=== PATIENT | male | born 1980 | race Caucasian/White ===

== ENCOUNTER 2023-06-07 06:16 | Inpatient (IN) | payer OTHER ==
[2023-06-07] MEDS: SODIUM CHLORIDE 0.9% 1,000 ML IV STA (06:45)
[2023-06-07 06:54] LABS: Basophils % (A) 0 %; Eosinophils # (A) 0.2 k/uL (0-0.7); Eosinophils % (A) 1 %; HCT 40.5 % (39.0-53.0); HGB 13.8 gm/dL (13.0-17.5); Lymphocytes % (A) 6 %; MCH 29.2 pg (25.0-35.0); MCHC 34.1 g/dL (31.0-37.0); MCV 85.7 fL (80.0-100.0); Mean Platelet Volume 8.1; Monocytes # (A) 0.7 k/uL (0-1.0); Monocytes % (A) 4 %; Neutrophils # (A) 15.4 k/uL (1.3-7.7); Neutrophils % (A) 89 %; Platelet Count 265 k/uL (150-450); RBC 4.73 m/uL (4.30-5.90); RDW 12.5 % (11.5-15.5); WBC 17.4 k/uL (3.8-10.6)
[2023-06-07 07:05] LABS: ALT 28 U/L (4-49); AST 24 U/L (17-59); African American GFR (CKD) >90 (>60 ml/min/1.73 sqM); Alkaline Phosphatase 94 U/L (38-126); Anion Gap 8 mmol/L; Blood Urea Nitrogen 12 mg/dL (9-20); Calcium 8.8 mg/dL (8.4-10.2); Carbon Dioxide 23 mmol/L (22-30); Chloride 102 mmol/L (98-107); Glucose 129 mg/dL (74-99); Lipase 46 U/L (23-300); Non-African American GFR(CKD) >90 (>60 ml/min/1.73 sqM); Potassium 4.2 mmol/L (3.5-5.1); Sodium 133 mmol/L (137-145); Total Bilirubin 0.8 mg/dL (0.2-1.3); Total Protein 7.4 g/dL (6.3-8.2)
[2023-06-07 07:08] LABS: Appearance,Urine Clear (Clear); Bilirubin,Urine Negative (Negative); Blood,Urine Negative (Negative); Color,Urine Yellow; Glucose,Urine (UA) Negative (Negative); Ketones,Urine Negative (Negative); Leukocyte Esterase,Urine Negative (Negative); Nitrite,Urine Negative (Negative); PH, Urine 5.5 (5.0-8.0); Protein,Urine Negative (Negative); Specific Gravity,Urine 1.021 (1.001-1.035); Urobilinogen,Urine <2.0 mg/dL (<2.0)
--- NOTE | 2023-06-07 07:22 | ED ---
Abdominal Pain HPI - General Chief Complaint: Abdominal Pain Stated Complaint: Abdominal Pain Time Seen by Provider: 06/07/23 06:20 Source: patient, RN notes reviewed Mode of arrival: ambulatory Limitations: no limitations - History of Present Illness Initial Comments: 43-year-old male presents emergency department chief complaint of abdominal pain, constipation no issues. Patient states he has had 3 bouts of this event on and off he states usually he has extreme diarrhea states that he is having difficulty with bowel wounds and states he is having difficulty with urinating. Patient states he feels large more pressure seems to wax and wane in his lower abdomen. Patient denies fevers or chills she denies any prior abdominal surgeries denies history of kidney stone or diverticulitis. - Related Data Allergies Allergy/AdvReac Type Severity Reaction Status Date / Time No Known Allergies Allergy Verified 06/07/23 06:20 Review of Systems ROS Statement: Those systems with pertinent positive or pertinent negative responses have been documented in the HPI. ROS Other: All systems not noted in ROS Statement are negative. Past Medical History Past Medical History: Hypertension History of Any Multi-Drug Resistant Organisms: None Reported Past Surgical History: No Surgical Hx Reported Past Psychological History: No Psychological Hx Reported Smoking Status: Never smoker Past Alcohol Use History: Occasional Past Drug Use History: None Reported General Exam Limitations: no limitations General appearance: alert, in no apparent distress Head exam: Present: atraumatic, normocephalic, normal inspection Neck exam: Present: normal inspection. Absent: tenderness, meningismus, lymphadenopathy Respiratory exam: Present: normal lung sounds bilaterally. Absent: respiratory distress, wheezes, rales, rhonchi, stridor Cardiovascular Exam: Present: regular rate, normal rhythm, normal heart sounds. Absent: systolic murmur, diastolic murmur, rubs, gallop, clicks GI/Abdominal exam: Present: soft, normal bowel sounds. Absent: distended, tenderness, guarding, rebound, rigid Back exam: Absent: CVA tenderness (R), CVA tenderness (L) Neurological exam: Present: alert, oriented X3, CN II-XII intact Course Vital Signs 06/07/23 06/07/23 06:18 07:46 Temperature 99.2 F Pulse Rate 95 86 Respiratory 20 22 Rate Blood Pressure 171/100 158/75 O2 Sat by Pulse 96 97 Oximetry Medical Decision Making - Medical Decision Making Was pt. sent in by a medical professional or institution (MANUEL Gregorio, ZIPPER SEWING MACHINE OPERATOR, urgent care, hospital, or usp...) When possible be specific @ -No Did you speak to anyone other than the patient for history (EMS, parent, family, police, friend...)? What history was obtained from this source @ -No Did you review nursing and triage notes (agree or disagree)? Why? @ -I reviewed and agree with nursing and triage notes Were old charts reviewed (outside hosp., previous admission, EMS record, old EKG, old radiological studies, urgent care reports/EKG's, usp records)? Report findings @ -No old charts were reviewed Differential Diagnosis (chest pain, altered mental status, abdominal pain women, abdominal pain men, vaginal bleeding, weakness, fever, dyspnea, syncope, headache, dizziness, GI bleed, back pain, seizure, CVA, palpatations, mental health, musculoskeletal)? @ -[Differential Abdominal Pain Men: Appendicitis, cholecystitis, diverticulosis, ischemic bowel, pancreatitis, hepatitis, UTI, gastroenteritis, AAA, incarcerated hernia, bowel obstruction, constipation, inflammatory bowel, hepatitis, peptic ulcer disease, splenic infarction, perforated viscus, testicular torsion, this is not meant to be an all-inclusive list EKG interpreted by me (3pts min.). @ -None X-rays interpreted by me (1pt min.). @ -None done CT interpreted by me (1pt min.). @ -CT abdomen pelvis showing evidence of diverticulitis with 5 cm fluid collection in small amount of free air U/S interpreted by me (1pt. min.). @ -None done What testing was considered but not performed or refused? (CT, X-rays, U/S, labs)? Why? @ -None What meds were considered but not given or refused? Why? @ -None Did you discuss the management of the patient with other professionals (p rofessionals i.e. MANUEL Gregorio, ZIPPER SEWING MACHINE OPERATOR, lab, RT, psych nurse, social media content specialist, press bucker, teacher, bsa officer, nurse case manager)? Give summary @ -Dr. Martin for admission recommend n.p.o., IV antibiotics analgesics Was smoking cessation discussed for >3mins.? @ -No Was critical care preformed (if so, how long)? @ -No Were there social determinants of health that impacted care today? How? (Homelessness, low income, unemployed, alcoholism, drug addiction, transportation, low edu. Level, literacy, decrease access to med. care, intermediate, rehab)? @ -No Was there de-escalation of care discussed even if they declined (Discuss DNR or withdrawal of care, Hospice)? DNR status @ -No What co-morbidities impacted this encounter? (DM, HTN, Smoking, COPD, CAD, Cancer, CVA, ARF, Chemo, Hep., AIDS, mental health diagnosis, sleep apnea, morbid obesity)? @ -None Was patient admitted / discharged? Hospital course, mention meds given and route, prescriptions, significant lab abnormalities, going to OR and other pertinent info. @ -[Admitted patient found to have acute diverticulitis patient does have moderate leukocytosis. Patient has a fluid collection and free air. Patient is n.p.o. patient was started on Zosyn, blood cultures were ordered. Undiagnosed new problem with uncertain prognosis? @ -No Drug Therapy requiring intensive monitoring for toxicity (Heparin, Nitro, Insulin, Cardizem)? @ -No Were any procedures done? @ -No Diagnosis/symptom? @ -Acute diverticulitis with abscess, perforation Acute, or Chronic, or Acute on Chronic? @ -[Acute Uncomplicated (without systemic symptoms) or Complicated (systemic symptoms)? @ -Complicated Side effects of treatment? @ -[No Exacerbation, Progression, or Severe Exacerbation? @ -No Poses a threat to life or bodily function? How? (Chest pain, USA, VT, pneumonia, PE, COPD, DKA, ARF, appy, cholecystitis, CVA, Diverticulitis, Homicidal, Suicidal, threat to staff... and all critical care pts) @ -Yes Diverticulitis, surgical risk - Lab Data Result diagrams: 06/07/23 06:46 06/07/23 06:46 Lab Results 06/07/23 06/07/23 06/07/23 Range/Units 06:46 06:46 06:46 WBC 17.4 H (3.8-10.6) k/uL RBC 4.73 (4.30-5.90) m/uL Hgb 13.8 (13.0-17.5) gm/dL Hct 40.5 (39.0-53.0) % MCV 85.7 (80.0-100.0) fL MCH 29.2 (25.0-35.0) pg MCHC 34.1 (31.0-37.0) g/dL RDW 12.5 (11.5-15.5) % Plt Count 265 (150-450) k/uL MPV 8.1 Neutrophils % 89 % Lymphocytes % 6 % Monocytes % 4 % Eosinophils % 1 % Basophils % 0 % Neutrophils # 15.4 H (1.3-7.7) k/uL Lymphocytes # 1.0 (1.0-4.8) k/uL Monocytes # 0.7 (0-1.0) k/uL Eosinophils # 0.2 (0-0.7) k/uL Basophils # 0.0 (0-0.2) k/uL Sodium 133 L (137-145) mmol/L Potassium 4.2 (3.5-5.1) mmol/L Chloride 102 (98-107) mmol/L Carbon Dioxide 23 (22-30) mmol/L Anion Gap 8 mmol/L BUN 12 (9-20) mg/dL Creatinine 0.90 (0.66-1.25) mg/dL Est GFR (CKD-EPI)AfAm >90 (>60 ml/min/1.73 sqM) Est GFR (CKD-EPI)NonAf >90 (>60 ml/min/1.73 sqM) Glucose 129 H (74-99) mg/dL Plasma Lactic Acid Zacarias 0.9 (0.7-2.0) mmol/L Calcium 8.8 (8.4-10.2) mg/dL Total Bilirubin 0.8 (0.2-1.3) mg/dL AST 24 (17-59) U/L ALT 28 (4-49) U/L Alkaline Phosphatase 94 (38-126) U/L Total Protein 7.4 (6.3-8.2) g/dL Albumin 4.0 (3.5-5.0) g/dL Lipase 46 (23-300) U/L Urine Color Urine Appearance (Clear) Urine pH (5.0-8.0) Ur Specific [place] (1.001-1.035) Urine Protein (Negative) Urine Glucose (UA) (Negative) Urine Ketones (Negative) Urine Blood (Negative) Urine Nitrite (Negative) Urine Bilirubin (Negative) Urine Urobilinogen (<2.0) mg/dL Ur Leukocyte Esterase (Negative) 06/07/23 Range/Units 06:47 WBC (3.8-10.6) k/uL RBC (4.30-5.90) m/uL Hgb (13.0-17.5) gm/dL Hct (39.0-53.0) % MCV (80.0-100.0) fL MCH (25.0-35.0) pg MCHC (31.0-37.0) g/dL RDW (11.5-15.5) % Plt Count (150-450) k/uL MPV Neutrophils % % Lymphocytes % % Monocytes % % Eosinophils % % Basophils % % Neutrophils # (1.3-7.7) k/uL Lymphocytes # (1.0-4.8) k/uL Monocytes # (0-1.0) k/uL Eosinophils # (0-0.7) k/uL Basophils # (0-0.2) k/uL Sodium (137-145) mmol/L Potassium (3.5-5.1) mmol/L Chloride (98-107) mmol/L Carbon Dioxide (22-30) mmol/L Anion Gap mmol/L BUN (9-20) mg/dL Creatinine (0.66-1.25) mg/dL Est GFR (CKD-EPI)AfAm (>60 ml/min/1.73 sqM) Est GFR (CKD-EPI)NonAf (>60 ml/min/1.73 sqM) Glucose (74-99) mg/dL Plasma Lactic Acid Zacarias (0.7-2.0) mmol/L Calcium (8.4-10.2) mg/dL Total Bilirubin (0.2-1.3) mg/dL AST (17-59) U/L ALT (4-49) U/L Alkaline Phosphatase (38-126) U/L Total Protein (6.3-8.2) g/dL Albumin (3.5-5.0) g/dL Lipase (23-300) U/L Urine Color Yellow Urine Appearance Clear (Clear) Urine pH 5.5 (5.0-8.0) Ur Specific [place] 1.021 (1.001-1.035) Urine Protein Negative (Negative) Urine Glucose (UA) Negative (Negative) Urine Ketones Negative (Negative) Urine Blood Negative (Negative) Urine Nitrite Negative (Negative) Urine Bilirubin Negative (Negative) Urine Urobilinogen <2.0 (<2.0) mg/dL Ur Leukocyte Esterase Negative (Negative) Disposition Clinical Impression: Diverticulitis of colon with perforation Disposition: ADMITTED IP TO THIS HOSP Condition: Fair Referrals: Reed Lambert DO [Primary Care Provider] - 1-2 days Time of Disposition: 08:08
--- NOTE | 2023-06-07 08:04 | CT ---
EXAMINATION TYPE: CT abdomen pelvis w con DATE OF EXAM: 06/07/2023 COMPARISON: None HISTORY: RLQ and LLQ pain x [address] DLP: 3097.2 mGycm Automated exposure control for dose reduction was used. TECHNIQUE: Helical acquisition of images was performed from the lung bases through the pelvis. CONTRAST: Performed without Oral Contrast and with IV Contrast, patient injected with 100 ml mL of Isovue 300. FINDINGS: There is a 6.5 mm pulmonary nodule in the right lung base otherwise the lung bases are clear. The gallbladder is normal without distention, wall thickening, pericholecystic fluid or gallstone. Th ere is no biliary ductal dilatation. There is no focal mass or organomegaly involving liver, pancreas, spleen or adrenal glands. There is no solid renal mass or hydronephrosis. The caliber of the abdominal aorta is normal. There i s no retroperitoneal adenopathy. There is marked abnormal increased density in the pericolic fat in the sigmoid colon consistent with marked acute diverticulitis. Immediately anterior to the rectosigmoid junction there is a fluid colle ction measuring 5 x 5 cm in size. It is well marginated but does not have a thickened wall and is lik ike a early organizing abscess. There are a few dense droplets of free intraperitoneal air beneath the diaphragm. There is no free fluid within the peritoneum. There is no pelvic adenopathy. No focal osseous lesions are seen. IMPRESSION: 1. Acute Diverticulitis of the sigmoid colon with probable adjacent developing abscess as described a theresa. 2. A few tiny droplets of free intraperitoneal air beneath the diaphragm. 3. Incidental note is made of a 6.5 mm pulmonary nodule.. On a nonemergent basis, CT thorax is recomm ended if this is a high risk patient for lung disease.
[2023-06-07] MEDS ORDERED: NALOXONE 0.4 MG/ML 1 ML VIAL IV PRN (08:08)
[2023-06-07] MEDS: KETOROLAC 15 MG/ML 1 ML VIAL IVP STA (08:14)
[2023-06-07] MEDS: ONDANSETRON 4 MG/2 ML VIAL IVP PRN (08:35)
[2023-06-07] MEDS: HYDROmorphone 0.5 MG/0.5 ML SYRINGE IVP PRN ×2 (08:39→14:21)
[2023-06-07] MEDS: SODIUM CHLORIDE 0.9% 1,000 ML IV SCH (08:39)
[2023-06-07] MEDS: PIPERACILLIN-TAZOBACTAM 3.375 GM in SODIUM CHLORIDE 0.9% 100 ML IVPB SCH (08:44)
--- NOTE | 2023-06-07 11:20 | P.GSHP ---
History of Present Illness H&P Date: 06/07/23 Chief Complaint: Perforated diverticulitis This is a 43-year-old male who had complaints of severe abdominal pain. Patient was seen emergency room found to have evidence of diverticulitis with microperforation. Patient dates has had pain since last Thursday. Past Medical History Past Medical History: Hypertension History of Any Multi-Drug Resistant Organisms: None Reported Past Surgical History: No Surgical Hx Reported Past Psychological History: No Psychological Hx Reported Smoking Status: Never smoker Past Alcohol Use History: Occasional Past Drug Use History: None Reported Medications and Allergies Allergies Allergy/AdvReac Type Severity Reaction Status Date / Time No Known Allergies Allergy Verified 06/07/23 06:20 Surgical - Exam Vital Signs Temp Pulse Resp BP Pulse Ox 99.2 F 95 20 171/100 96 06/07/23 06:18 06/07/23 06:18 06/07/23 06:18 06/07/23 06:18 06/07/23 06:18 - General well developed, well nourished, no distress - Eyes PERRL - ENT normal pinna - Neck no masses - Respiratory normal expansion - Cardiovascular Rhythm: regular - Abdomen Tenderness in right and left lower quadrants. Abdomen: soft Results - Labs 06/07/23 06:46 06/07/23 06:46 Abnormal Lab Results - Last 24 Hours (Table) 06/07/23 06/07/23 Range/Units 06:46 06:46 WBC 17.4 H (3.8-10.6) k/uL Neutrophils # 15.4 H (1.3-7.7) k/uL Sodium 133 L (137-145) mmol/L Glucose 129 H (74-99) mg/dL Diabetes panel 06/07/23 Range/Units 06:46 Sodium 133 L (137-145) mmol/L Potassium 4.2 (3.5-5.1) mmol/L Chloride 102 (98-107) mmol/L Carbon Dioxide 23 (22-30) mmol/L BUN 12 (9-20) mg/dL Creatinine 0.90 (0.66-1.25) mg/dL Glucose 129 H (74-99) mg/dL Calcium 8.8 (8.4-10.2) mg/dL AST 24 (17-59) U/L ALT 28 (4-49) U/L Alkaline Phosphatase 94 (38-126) U/L Total Protein 7.4 (6.3-8.2) g/dL Albumin 4.0 (3.5-5.0) g/dL Calcium panel 06/07/23 Range/Units 06:46 Calcium 8.8 (8.4-10.2) mg/dL Albumin 4.0 (3.5-5.0) g/dL Pituitary panel 06/07/23 Range/Units 06:46 Sodium 133 L (137-145) mmol/L Potassium 4.2 (3.5-5.1) mmol/L Chloride 102 (98-107) mmol/L Carbon Dioxide 23 (22-30) mmol/L BUN 12 (9-20) mg/dL Creatinine 0.90 (0.66-1.25) mg/dL Glucose 129 H (74-99) mg/dL Calcium 8.8 (8.4-10.2) mg/dL Adrenal panel 06/07/23 Range/Units 06:46 Sodium 133 L (137-145) mmol/L Potassium 4.2 (3.5-5.1) mmol/L Chloride 102 (98-107) mmol/L Carbon Dioxide 23 (22-30) mmol/L BUN 12 (9-20) mg/dL Creatinine 0.90 (0.66-1.25) mg/dL Glucose 129 H (74-99) mg/dL Calcium 8.8 (8.4-10.2) mg/dL Total Bilirubin 0.8 (0.2-1.3) mg/dL AST 24 (17-59) U/L ALT 28 (4-49) U/L Alkaline Phosphatase 94 (38-126) U/L Total Protein 7.4 (6.3-8.2) g/dL Albumin 4.0 (3.5-5.0) g/dL - Imaging CT scan - abdomen: report reviewed (Diverticulitis with potentially developing abscess.) Assessment and Plan Assessment: Diverticulitis. Patient was seen receive IV antibiotics. He will remain NPO.
--- NOTE | 2023-06-07 14:07 | XR ---
EXAMINATION TYPE: XR chest 1V portable DATE OF EXAM: 06/07/2023 2:03 PM CLINICAL INDICATION:Male, 43 years old with history of chf; [facility] COMPARISON: None. TECHNIQUE: XR chest 1V portable Frontal view of the chest. FINDINGS: Lungs/Pleura: There is no evidence of pleural effusion, focal consolidation, or pneumothorax. Pulmonary vascularity: Mild vascular congestion. Heart/mediastinum: Cardiomediastinal silhouette is unremarkable. Musculoskeletal: No acute osseous pathology. IMPRESSION: Minimal pulmonary vascular congestion. No evidence of pleural effusion or other evidence to suggest h eart failure.
[2023-06-07] MEDS: HEPARIN SODIUM,PORCINE 5,000 UNIT/ML 1 ML VIAL SQ SCH (14:22)
[2023-06-07] MEDS: PANTOPRAZOLE 40 MG/10 ML VIAL IVP SCH (14:22)
--- NOTE | 2023-06-07 14:43 | P.CONS ---
History of Present Illness - Reason for Consult Consult date: 06/07/23 Perforated diverticulitis and abscess Requesting physician: Moiz Martin - Chief Complaint Abdominal pain x few days - History of Present Illness Patient is a 43-year-old male with a past medical history significant for hypertension presenting to the ER for evaluation of abdominal pain and constipation patient mention his symptoms started initially beginning of the week has mostly abdominal pain and difficulty going to the bathroom however by Thursday his symptoms improved however the next day that is the day before presentation to the hospital patient did have worsening abdominal pain describing it to be sharp moderate to severe intensity without any radiation did have associated difficulty urination as well as no bowel movement patient did have some nausea and apparently did have some vomiting of the patient was started on some medication here patient on presentation to the hospital did have a low-grade fever of 99.2. No significant tachycardia no hypotension and no hypoxemia was noticed patient did have white count of 17.4 with a left shift c reatinine 0.90 urine has been negative patient did have a CT of abdominal pelvis acute diverticulitis sigmoid colon with possible adjacent developing abscess patient was started on Zosyn infectious was consulted for further management of antibiotic therapy Review of Systems Positive point and negatives has been mentioned in the HPI, complete review of systems was performed and all other systems are negative Past Medical History Past Medical History: Hypertension History of Any Multi-Drug Resistant Organisms: None Reported Past Surgical History: No Surgical Hx Reported Past Psychological History: No Psychological Hx Reported Smoking Status: Never smoker Past Alcohol Use History: Occasional Past Drug Use History: None Reported Medications and Allergies Home Medications Medication Instructions Recorded Confirmed Type lisinopriL 30 mg PO DAILY 06/07/23 06/07/23 History tadalafiL [Cialis] 20 mg PO Q72H PRN 06/07/23 06/07/23 History Allergies Allergy/AdvReac Type Severity Reaction Status Date / Time No Known Allergies Allergy Verified 06/07/23 11:31 Physical Exam Vitals: Vital Signs Temp Pulse Pulse Resp BP BP Pulse Ox 06/07/23 10:05 98.4 F 68 20 162/70 97 06/07/23 08:49 98.7 F 60 20 151/67 97 06/07/23 07:46 86 22 158/75 97 06/07/23 06:18 99.2 F 95 20 171/100 96 Intake and Output 0206/07/23 06/07/23 22:59 06:59 14:59 Other: Weight 145.15 kg GENERAL DESCRIPTION: Middle-aged male lying in bed, no distress. No tachypnea or accessory muscle of respiration use. HEENT: Shows Pallor , no scleral icterus. Oral mucous membrane is dry. No pharyngeal erythema or thrush NECK: Trachea central, no thyromegaly. LUNGS: Unlabored breathing. Clear to auscultation anteriorly. No wheeze or crackle. HEART: S1, S2, regular rate and rhythm. No loud murmur ABDOMEN: Soft, mild tenderness , no guarding or rigidity EXTREMITIES: No edema of feet. SKIN: No rash, no masses palpable. NEUROLOGICAL: The patient is awake, alert, oriented x3, mood and affect normal. Results CBC & Chem 7: 06/07/23 06:46 06/07/23 06:46 Labs: Abnormal Lab Results - Last 24 Hours (Table) 06/07/23 06/07/23 Range/Units 06:46 06:46 WBC 17.4 H (3.8-10.6) k/uL Neutrophils # 15.4 H (1.3-7.7) k/uL Sodium 133 L (137-145) mmol/L Glucose 129 H (74-99) mg/dL Assessment and Plan (1) Intra-abdominal abscess Current Visit: Yes Status: Acute Code(s): K65.1 - PERITONEAL ABSCESS SNOMED Code(s): 84122245 (2) Leukocytosis Current Visit: Yes Status: Acute Code(s): D72.829 - ELEVATED WHITE BLOOD CELL COUNT, UNSPECIFIED SNOMED Code(s): 031831495 (3) Diverticulitis of colon with perforation Current Visit: Yes Status: Acute Code(s): K57.20 - DVTRCLI OF LG INT W PERFORATION AND ABSCESS W/O BLEEDING SNOMED Code(s): 04527853 Plan: 1patient to the hospital with sepsis in this patient who did have a low-grade fever elevated white count mild tachycardia source is likely abdominal in this patient with evidence of acute sigmoid diverticulitis complicated with perf oration and possible involvement of lang diverticular abscess, we will need to cover for the enteric gram-negative both aerobes and anaerobes 2patient to continue with Zosyn 3.375 g every 8 hours admission for adequate body coverage along with bowel rest Multiple question concern answered We will follow on clinical condition and cultures to further adjust medication if needed Thank you for this consultation we will follow the patient along with you Dictation was produced using [employer] dictation software. please excuse any grammatical, word or spelling errors. Time with Patient: Greater than 30
--- NOTE | 2023-06-07 23:19 | CONS ---
CONSULTATION REASON FOR CONSULTATION: Advice regarding hypertension, other multiple issues requested by surgery. HISTORY OF PRESENT ILLNESS: A 43-year-old gentleman with a past medical history of hypertension, was admitted with abdominal pain, diverticulitis, and microperforation was suspected. Few tiny droplets of intraperitoneal air were also noted beneath the diaphragm and incidentally noted 6.5 cm pulmonary nodule. The patient admitted for further management. There is no history of fever or rigors. Surgery is recommended, antibiotics and continue to monitor. PAST MEDICAL HISTORY: Reviewed include hypertension. Rest of the history and rest of the chart is also reviewed. HOME MEDICATIONS: Lisinopril and Cialis. ALLERGIES: None. FAMILY HISTORY: No history of heart disease or strokes in the family. SOCIAL HISTORY: No history of smoking or alcohol. REVIEW OF SYSTEMS: A 14-point review of systems negative except as mentioned earlier. PHYSICAL EXAMINATION: VITAL SIGNS: Pulse is 60, blood pressure 151/60, and respirations 20. CHEST: No rhonchi. No crackles. ABDOMEN: Obese. Mild diffuse discomfort. No guarding. No mass palpable. Bowel sounds diminished. LEGS: No edema. No swelling. LABORATORY DATA: WBC 17.4. ASSESSMENT: 1. Acute sigmoid diverticulitis as well as probably microperforation. 2. Tiny droplets of free intraperitoneal air in the CAT scan. 3. Incidental note of 6.5 mm pulmonary nodule. 4. Hypertension. 5. Increased WBC. 6. Hyponatremia. 7. Obesity with body mass index 40. RECOMMENDATIONS AND DISCUSSION: This 43-year-old gentleman who presented with multiple complex medical issues. We will monitor the patient closely. Continue the current management and pain management. I would recommend broad-spectrum IV antibiotics. Follow the cultures. Otherwise, Infectious Disease evaluation. I would recommend monitor blood pressure closely. Continue to monitor. Further recommendations to follow. MMODL / IJN: [id number] /
[2023-06-08] MEDS: ACETAMINOPHEN TAB 325 MG TAB PO PRN (03:23)
[2023-06-08] MEDS: hydrALAZINE HCL 20 MG/ML 1 ML VIAL IVP PRN (03:44)
[2023-06-08 08:33] LABS: Basophils # (A) 0.04 X 10*3/uL (0.00-0.10); Basophils % (A) 0.2 %; Eosinophils # (A) 0.04 X 10*3/uL (0.04-0.35); Eosinophils % (A) 0.2 %; HCT 37.2 % (39.6-50.0); HGB 12.1 g/dL (13.0-17.0); Lymphocytes # (A) 1.21 X 10*3/uL (0.90-5.00); Lymphocytes % (A) 6.4 %; MCH 28.3 pg (27.0-32.0); MCHC 32.5 g/dL (32.0-37.0); MCV 87.1 FL (80.0-97.0); Mean Platelet Volume 10.5 FL (9.5-12.2); Monocytes % (A) 7.4 %; NRBC Per 100 WBC 0 X 10*3/uL (0.00-0.01); Neutrophils # (A) 16.12 X 10*3/uL (1.80-7.70); Neutrophils % (A) 85.2 %; Platelet Count 240 X 10*3/uL (140-440); RBC 4.27 X 10*6/uL (4.40-5.60); RDW 12.7 % (11.5-14.5); WBC 18.92 X 10*3/uL (4.50-10.00)
[2023-06-08 08:45] LABS: Blood Urea Nitrogen 9.4 mg/dL (9.0-27.0); Calcium 8.6 mg/dL (8.7-10.3); Carbon Dioxide 23.3 mmol/L (21.6-31.8); Chloride 101 mmol/L (96-109); Glucose 106 mg/dL (70-110); Potassium 3.6 mmol/L (3.5-5.5); Sodium 137 mmol/L (135-145)
--- NOTE | 2023-06-08 11:25 | P.PN ---
Subjective Progress Note Date: 06/08/23 Principal diagnosis: Reason for follow-up is complicated diverticulitis with peridiverticular abscess Patient is a 43-year-old male with a past medical history significant for hypertension presenting to the ER for evaluation of abdominal pain and constipation, patient been diagnosed with the complicated diverticulitis with perforation and mild peridiverticular abscess. On today's evaluation that is 06/08/2023, the patient did have a low-grade fever 100.5 around 3 this morning however the patient is afebrile since then, the patient is on room air and breathing comfortably, the Pt denies having any chest pain or cough, the patient abdominal pain has decreased in intensity denies any nausea no vomiting did not have any bowel movement. Patient white count slightly up to 18.92, creatinine is 1.0 Objective - Vital Signs Vital signs: Vital Signs Temp 98.8 F 06/08/23 06:55 Pulse 91 06/08/23 06:55 Resp 18 06/08/23 06:55 BP 138/79 06/08/23 06:55 Pulse Ox 97 06/08/23 06:55 FiO2 Intake & Output 06/07/23 06/08/23 06/08/23 18:59 06:59 18:59 Output Total 1172 Balance -1172 Weight 145.15 kg Output: Urine 700 Post Void Residual 472 Other: Voiding Method Toilet Toilet # Voids 6 - Exam GENERAL DESCRIPTION: Middle-age male lying in bed in no distress RESPIRATORY SYSTEM: Unlabored breathing , decreased breath sounds at bases HEART: S1 S2 regular rate and rhythm , ABDOMEN: Soft , mild distention but no significant tenderness EXTREMITIES: No edema feet - Labs CBC & Chem 7: 06/08/23 05:21 06/08/23 05:21 Labs: Abnormal Lab Results - Last 24 Hours (Table) 06/08/23 06/08/23 Range/Units 05:21 05:21 WBC 18.92 H (4.50-10.00) X 10*3/uL RBC 4.27 L (4.40-5.60) X 10*6/uL Hgb 12.1 L (13.0-17.0) g/dL Hct 37.2 L (39.6-50.0) % Immature Gran # 0.11 H (0.00-0.04) X 10*3/uL Neutrophils # 16.12 H (1.80-7.70) X 10*3/uL Monocytes # 1.40 H (0.20-1.00) X 10*3/uL Anion Gap 12.70 H (4.00-12.00) mmol/L BUN/Creatinine Ratio 9.40 L (12.00-20.00) Ratio Calcium 8.6 L (8.7-10.3) mg/dL Assessment and Plan (1) Intra-abdominal abscess Current Visit: Yes Status: Acute Code(s): K65.1 - PERITONEAL ABSCESS SNOMED Code(s): 61240563 (2) Leukocytosis Current Visit: Yes Status: Acute Code(s): D72.829 - ELEVATED WHITE BLOOD CELL COUNT, UNSPECIFIED SNOMED Code(s): 129894281 (3) Diverticulitis of colon with perforation Current Visit: Yes Status: Acute Code(s): K57.20 - DVTRCLI OF LG INT W PERFORATION AND ABSCESS W/O BLEEDING SNOMED Code(s): 50639598 Plan: 1patient to the hospital with sepsis in this patient who did have a low-grade fever elevated white count mild tachycardia source is likely abdominal in this patient with evidence of acute sigmoid diverticulitis complicated with perforation and possible involvement of lang diverticular abscess, we will need to cover for the enteric gram-negative both aerobes and anaerobes 2patient did have a low-grade fever white count slightly up that is slightly concerning however the patient mention feeling better hence will continue with Zosyn 3.375 g every 8 hours along with bowel rest Multiple question concern answered Dictation was produced using [email or web address] dictation software. please excuse any grammatical, word or spelling errors. Time with Patient: Less than 30
--- NOTE | 2023-06-08 15:12 | P.PN ---
Subjective Progress Note Date: 06/08/23 CHIEF COMPLAINT: Perforated diverticulitis HISTORY OF PRESENT ILLNESS: Patient reports abdominal pain improving. He reports he can go longer duration between doses of pain medication. Denies any nausea or vomiting. He has been incontinent of stool. Did have a low-grade temp of 100.5 at 3 AM this morning. WBC is up from 17-18.92 PHYSICAL EXAM: VITAL SIGNS: Reviewed. GENERAL: Well-developed in no acute distress. HEENT: No sclera icterus. Extraocular movements grossly intact. Moist buccal mucosa. Head is atraumatic, normocephalic. ABDOMEN: Soft. Nondistended. Nontender. Patient received pain medicine before exam NEUROLOGIC: Alert and oriented. Cranial nerves II through XII grossly intact. ASSESSMENT: 1. Diverticulitis with microperforation and potentially developing abscess PLAN: -Keep patient n.p.o. -Continue IV fluids -Continue IV pain medication -Encourage patient to increase activity level -Repeat CBC in a.m. Physician Custodian Supervisor note has been reviewed by physician. Signing provider agrees with the documented findings, assessment, and plan of care. Objective - Vital Signs Vital signs: Vital Signs Temp 98.8 F 06/08/23 06:55 Pulse 91 06/08/23 06:55 Resp 18 06/08/23 06:55 BP 138/79 06/08/23 06:55 Pulse Ox 97 06/08/23 06:55 FiO2 Intake & Output 06/07/23 06/08/23 06/08/23 18:59 06:59 18:59 Output Total 1172 Balance -1172 Weight 145.15 kg Output: Urine 700 Post Void Residual 472 Other: Voiding Method Toilet Toilet # Voids 6 - Labs CBC & Chem 7: 06/08/23 05:21 06/08/23 05:21 Labs: Abnormal Lab Results - Last 24 Hours (Table) 06/08/23 06/08/23 Range/Units 05:21 05:21 WBC 18.92 H (4.50-10.00) X 10*3/uL RBC 4.27 L (4.40-5.60) X 10*6/uL Hgb 12.1 L (13.0-17.0) g/dL Hct 37.2 L (39.6-50.0) % Immature Gran # 0.11 H (0.00-0.04) X 10*3/uL Neutrophils # 16.12 H (1.80-7.70) X 10*3/uL Monocytes # 1.40 H (0.20-1.00) X 10*3/uL Anion Gap 12.70 H (4.00-12.00) mmol/L BUN/Creatinine Ratio 9.40 L (12.00-20.00) Ratio Calcium 8.6 L (8.7-10.3) mg/dL
--- NOTE | 2023-06-08 22:40 | PN ---
PROGRESS NOTE DATE OF SERVICE: 06/08/2023 SUBJECTIVE: This is a 43-year-old gentleman, who was admitted with diverticulitis as well as microperforation. He is on antibiotics. No chest pain. No palpitation. Surgery is following the patient closely. OBJECTIVE: VITAL SIGNS: Pulse is 91, blood pressure 138/77, respirations 18. T-max is 100.5. CHEST: Clear to auscultation. CARDIOVASCULAR: S1, S2 muffled. ABDOMEN: Soft, obese. LABORATORY DATA: Reviewed. WBC 18.92, rest of the labs are noted. ASSESSMENT: 1. Acute sigmoid diverticulitis and as well as microperforation. 2. Continued fever. 3. Tiny droplets of free intraperitoneal air in the CT scan. 4. Incidental note of 6.5 mm pulmonary nodule for outpatient followup. 5. Hypertension. 6. Increased WBC. 7. Hyponatremia. 8. Obesity with body mass index of 40. RECOMMENDATIONS AND DISCUSSION: Recommend to continue current management and continue symptomatic treatment, otherwise we will repeat blood cultures. Repeat labs. Closely follow with Surgery, Infectious Disease, empiric antibiotics. Further recommendations to follow. MMODL / IJN: [id number] /
[2023-06-09 11:26] LABS: Basophils # (A) 0.05 X 10*3/uL (0.00-0.10); Basophils % (A) 0.3 %; Eosinophils # (A) 0.02 X 10*3/uL (0.04-0.35); Eosinophils % (A) 0.1 %; HCT 35.8 % (39.6-50.0); HGB 11.8 g/dL (13.0-17.0); Lymphocytes # (A) 1.62 X 10*3/uL (0.90-5.00); Lymphocytes % (A) 9.9 %; MCH 29.3 pg (27.0-32.0); MCV 88.8 FL (80.0-97.0); Mean Platelet Volume 10.4 FL (9.5-12.2); Monocytes # (A) 1.16 X 10*3/uL (0.20-1.00); Monocytes % (A) 7.1 %; NRBC Per 100 WBC 0 X 10*3/uL (0.00-0.01); Neutrophils # (A) 13.35 X 10*3/uL (1.80-7.70); Neutrophils % (A) 81.8 %; Platelet Count 245 X 10*3/uL (140-440); RBC 4.03 X 10*6/uL (4.40-5.60); RDW 12.8 % (11.5-14.5); WBC 16.33 X 10*3/uL (4.50-10.00)
[2023-06-09 11:37] LABS: ALT 18 U/L (10-49); AST 16 U/L (14-35); Albumin 3.6 g/dL (3.8-4.9); Albumin/Globulin Ratio 1.24 Ratio (1.60-3.17); Alkaline Phosphatase 76 U/L (41-126); BUN/Creat Ratio 12.27 Ratio (12.00-20.00); Blood Urea Nitrogen 13.5 mg/dL (9.0-27.0); Calcium 8.7 mg/dL (8.7-10.3); Carbon Dioxide 26.6 mmol/L (21.6-31.8); Chloride 100 mmol/L (96-109); Globulin 2.9 g/dL (1.6-3.3); Glucose 89 mg/dL (70-110); Potassium 3.6 mmol/L (3.5-5.5); Sodium 138 mmol/L (135-145); Total Bilirubin 0.8 mg/dL (0.3-1.2); Total Protein 6.5 g/dL (6.2-8.2)
--- NOTE | 2023-06-09 12:02 | P.PN ---
Subjective Progress Note Date: 06/09/23 CHIEF COMPLAINT: Perforated diverticulitis HISTORY OF PRESENT ILLNESS: Patient reports that his pain is improving each day. He has being able to go longer time without pain medicine. He describes just a pressure in the lower abdomen. Denies any nausea or vomiting. Reports having bowel movements. Afebrile. WBC is down from 18.92-16.33 PHYSICAL EXAM: VITAL SIGNS: Reviewed. GENERAL: Well-developed in no acute distress. ABDOMEN: Soft. Nondistended. Nontender. NEUROLOGIC: Alert and oriented. Cranial nerves II through XII grossly intact. ASSESSMENT: 1. Diverticulitis with microperforation and potentially developing abscess PLAN: -Advance diet to full liquids -Continue IV fluids -Continue IV pain medication -Encourage patient to increase activity level -Repeat CBC in a.m. Physician Veterinary Nurse note has been reviewed by physician. Signing provider agrees with the documented findings, assessment, and plan of care. Objective - Vital Signs Vital signs: Vital Signs Temp 98.9 F 06/09/23 07:17 Pulse 90 06/09/23 07:17 Resp 16 06/09/23 07:17 BP 119/70 06/09/23 07:17 Pulse Ox 98 06/09/23 07:17 FiO2 Intake & Output 06/08/23 06/09/23 06/09/23 18:59 06:59 18:59 Other: Voiding Method Toilet Toilet # Voids 5 2 - Labs CBC & Chem 7: 06/09/23 05:25 06/09/23 05:25 Labs: Abnormal Lab Results - Last 24 Hours (Table) 06/09/23 06/09/23 Range/Units 05:25 05:25 WBC 16.33 H (4.50-10.00) X 10*3/uL RBC 4.03 L (4.40-5.60) X 10*6/uL Hgb 11.8 L (13.0-17.0) g/dL Hct 35.8 L (39.6-50.0) % Immature Gran # 0.13 H (0.00-0.04) X 10*3/uL Neutrophils # 13.35 H (1.80-7.70) X 10*3/uL Monocytes # 1.16 H (0.20-1.00) X 10*3/uL Eosinophils # 0.02 L (0.04-0.35) X 10*3/uL Albumin 3.6 L (3.8-4.9) g/dL Albumin/Globulin Ratio 1.24 L (1.60-3.17) Ratio Microbiology - Last 24 Hours (Table) 06/07/23 08:25 Blood Culture - Preliminary Blood 06/07/23 08:10 Blood Culture - Preliminary Blood
--- NOTE | 2023-06-09 12:27 | P.PN ---
Subjective Progress Note Date: 06/09/23 Principal diagnosis: Reason for follow-up is complicated diverticulitis with peridiverticular abscess Patient is a 43-year-old male with a past medical history significant for hypertension presenting to the ER for evaluation of abdominal pain and constipation, patient been diagnosed with the complicated diverticulitis with perforation and mild peridiverticular abscess. On today's evaluation that is 06/09/2023, Patient is afebrile , patient is currently on room air and denies having any shortness of breath, the patient denies any chest pain or cough, the patient denies any nausea vomiting abdominal pain has decreased intensity did not require any pain medication and mention of bowel movements. Patient white count is down to 16.33, creatinine is 1.1 blood cultures pending Objective - Vital Signs Vital signs: Vital Signs Temp 98.9 F 06/09/23 07:17 Pulse 90 06/09/23 07:17 Resp 16 06/09/23 07:17 BP 119/70 06/09/23 07:17 Pulse Ox 98 06/09/23 07:17 FiO2 Intake & Output 06/08/23 06/09/23 06/09/23 18:59 06:59 18:59 Other: Voiding Method Toilet Toilet # Voids 5 2 - Exam GENERAL DESCRIPTION: Middle-age male lying in bed in no distress RESPIRATORY SYSTEM: Unlabored breathing , decreased breath sounds at bases HEART: S1 S2 regular rate and rhythm , ABDOMEN: Soft , mild distention but no significant tenderness EXTREMITIES: No edema feet - Labs CBC & Chem 7: 06/09/23 05:25 06/09/23 05:25 Labs: Microbiology - Last 24 Hours (Table) 06/07/23 08:25 Blood Culture - Preliminary Blood 06/07/23 08:10 Blood Culture - Preliminary Blood Assessment and Plan (1) Intra-abdominal abscess Current Visit: Yes Status: Acute Code(s): K65.1 - PERITONEAL ABSCESS SNOMED Code(s): 85532818 (2) Leukocytosis Current Visit: Yes Status: Acute Code(s): D72.829 - ELEVATED WHITE BLOOD CELL COUNT, UNSPECIFIED SNOMED Code(s): 570517713 (3) Diverticulitis of colon with perforation Current Visit: Yes Status: Acute Code(s): K57.20 - DVTRCLI OF LG INT W PERFORATION AND ABSCESS W/O BLEEDING SNOMED Code(s): 33386695 Plan: 1patient to the hospital with sepsis in this patient who did have a low-grade fever elevated white count mild tachycardia source is likely abdominal in this patient with evidence of acute sigmoid diverticulitis complicated with perforation and possible involvement of lang diverticular abscess, we will need to cover for the enteric gram-negative both aerobes and anaerobes 2patient did have resolution of his fever and the white count is trending down we will continue patient on Zosyn along with bowel rest and monitor clinical course closely Question concern answered Dictation was produced using [employer] dictation software. please excuse any grammatical, word or spelling errors. Time with Patient: Less than 30
--- NOTE | 2023-06-09 14:16 | CDI ---
Documentation Clarification Form Date: 06/09/2023 01:51:53 PM From: Chapis Hernandez RN CCDS Phone: [phone] Admit Date: 06/07/2023 08:10:00 AM Patient Name: Moris Payan Visit Number: [id number] Discharge Date: ATTENTION: The Clinical Documentation Specialists (CDI) and [facility] Coding Staff appreciate your assistance in clarifying documentation. Please respond to the clarification below the line at the bottom and electronically sign. The CDI & [facility] Coding staff will review the response and follow-up if needed. Please note: Queries are made part of the Legal Health Record. If you have any questions, please contact the author of this message via ITS. Dr. Moiz Millerania The patient has Diverticulitis with micro perforation and potentially developing abscess. Based on this information and the findings below, is there an additional diagnosis that is clinically appropriate for this patient? History/Risk Factors: 43-year-old male presents to the ED with abdominal pain. Medical History: HTN. 06/07, Medicine consult. Clinical Indicators: WBC, 06/07: 17.4 Neutrophils, 06/07: 15.4 Blood cultures, 06/08: Preliminary No growth after 24 hours Vitals signs, 06/07: B/P 171/100; HR 95; Temp 99.2F Oral; RR 20, SpO2 96% room air ID Consult, 06/07: Patient to the hospital with sepsis in this patient who did have a low grade fever elevated white count mild tachycardia source is likely abdominal in this patient with evidence of acute sigmoid diverticulitis complicated with perforation and possible involvement of lang diverticular abscess. ABD PELVIS CT, 06/07: 1.Acute Diverticulitis of the sigmoid colon with probable adjacent developing abscess as described above. 2.A few tiny droplets of free intraperitoneal air beneath the diaphragm. Treatment: ID Consult: See above Antibiotics: 06/07 Zosyn 3.375gm 100mls@25mls/hr IVPB Q8HR IV Bolus: 06/07 0.9NS 1L IVPB Bolus x 1 Is there an additional diagnosis that is clinically appropriate for this patient? [ X] Sepsis, present on admission [ ] Sepsis ruled out [ ] Other, please specify [ ] Unable to determine SIRS Criteria: 2 or more of the following may indicate SIRS Temperature < 96.8F (36C) or > 101.0F (38.3C) Heart Rate > 90 bpm Respiratory Rate > 20 breaths/min or PaCO2 < 32 mmHg White Blood Cell Count > 12,000 or < 4,000 cells/mm3 or > 10% bands (Template Last Reviewed: April 2022) MTDD
--- NOTE | 2023-06-09 14:58 | PN ---
PROGRESS NOTE DATE OF SERVICE: 06/09/2023 SUBJECTIVE: This is a 43-year-old gentleman who was admitted with acute sigmoid diverticulitis and microperforation. He is being closely monitored. No chest pain. No palpitations. No fever. The patient is on medical treatment. PHYSICAL EXAMINATION: VITAL SIGNS: Pulse is 90, blood pressure n respiratory rate 16. CHEST: Clear to auscultation. CARDIOVASCULAR: S1, S2. ABDOMEN: Soft, minimal discomfort. No guarding or rigidity. LABORATORY DATA: WBC 16.3, improving. ASSESSMENT: 1. Acute sigmoid diverticulitis as well as microperforation, on medical treatment. 2. Continued fever, improving. 3. Tiny droplets of free intraperitoneal air in the CAT scan. 4. Incidental note of 6.5 mm pulmonary nodule in outpatient followup. 5. Hypertension. 6. Increased WBC. 7. Hyponatremia. RECOMMENDATIONS AND DISCUSSION: I recommend to continue current management and continue the antibiotics. Otherwise, closely monitor. Repeat labs will be ordered. Closely follow with Surgery, DVT prophylaxis. Further recommendations to follow. MMODL / IJN: [id number] / THO
[2023-06-10 11:06] LABS: Basophils # (A) 0.05 X 10*3/uL (0.00-0.10); Basophils % (A) 0.4 %; Eosinophils # (A) 0.07 X 10*3/uL (0.04-0.35); Eosinophils % (A) 0.6 %; HCT 38.5 % (39.6-50.0); HGB 12.7 g/dL (13.0-17.0); Lymphocytes % (A) 12.4 %; MCH 28.8 pg (27.0-32.0); MCV 87.3 FL (80.0-97.0); Mean Platelet Volume 10.6 FL (9.5-12.2); Monocytes # (A) 0.95 X 10*3/uL (0.20-1.00); Monocytes % (A) 7.8 %; NRBC Per 100 WBC 0 X 10*3/uL (0.00-0.01); Neutrophils # (A) 9.46 X 10*3/uL (1.80-7.70); Platelet Count 292 X 10*3/uL (140-440); RBC 4.41 X 10*6/uL (4.40-5.60); RDW 12.7 % (11.5-14.5); WBC 12.13 X 10*3/uL (4.50-10.00)
--- NOTE | 2023-06-10 11:22 | P.PN ---
Subjective Progress Note Date: 06/10/23 Principal diagnosis: Reason for follow-up is complicated diverticulitis with peridiverticular abscess Patient is a 43-year-old male with a past medical history significant for hypertension presenting to the ER for evaluation of abdominal pain and constipation, patient been diagnosed with the complicated diverticulitis with perforation and mild peridiverticular abscess. On today's evaluation that is 06/10/2023,the patient denies any fever or any chills, patient is breathing comfortably on room air, the patient denies chest pain shortness of breath and no significant cough, patient abdominal pain has slightly decreased in intensity denies any nausea no vomiting did have bowel movement x 2. The patient white count is 12.13 creatinine is 1.1 blood culture has been negative Objective - Vital Signs Vital signs: Vital Signs Temp 98.3 F 06/10/23 07:29 Pulse 81 06/10/23 07:29 Resp 18 06/10/23 07:29 BP 147/84 06/10/23 07:29 Pulse Ox 96 06/10/23 07:29 FiO2 Intake & Output 06/09/23 06/10/23 06/10/23 18:59 06:59 18:59 Other: Voiding Method Toilet # Voids 5 2 1 # Bowel Movements 1 - Exam GENERAL DESCRIPTION: Middle-age male lying in bed in no distress RESPIRATORY SYSTEM: Unlabored breathing , decreased breath sounds at bases HEART: S1 S2 regular rate and rhythm , ABDOMEN: Soft , mild distention but no significant tenderness EXTREMITIES: No edema feet - Labs CBC & Chem 7: 06/10/23 06:02 06/09/23 05:25 Labs: Abnormal Lab Results - Last 24 Hours (Table) 06/09/23 06/09/23 Range/Units 05:25 05:25 WBC 16.33 H (4.50-10.00) X 10*3/uL RBC 4.03 L (4.40-5.60) X 10*6/uL Hgb 11.8 L (13.0-17.0) g/dL Hct 35.8 L (39.6-50.0) % Immature Gran # 0.13 H (0.00-0.04) X 10*3/uL Neutrophils # 13.35 H (1.80-7.70) X 10*3/uL Monocytes # 1.16 H (0.20-1.00) X 10*3/uL Eosinophils # 0.02 L (0.04-0.35) X 10*3/uL Albumin 3.6 L (3.8-4.9) g/dL Albumin/Globulin Ratio 1.24 L (1.60-3.17) Ratio Microbiology - Last 24 Hours (Table) 06/08/23 12:21 Blood Culture - Preliminary Blood 06/07/23 08:25 Blood Culture - Preliminary Blood 06/07/23 08:10 Blood Culture - Preliminary Blood Assessment and Plan (1) Intra-abdominal abscess Current Visit: Yes Status: Acute Code(s): K65.1 - PERITONEAL ABSCESS SNOMED Code(s): 68587262 (2) Leukocytosis Current Visit: Yes Status: Acute Code(s): D72.829 - ELEVATED WHITE BLOOD CELL COUNT, UNSPECIFIED SNOMED Code(s): 283578162 (3) Diverticulitis of colon with perforation Current Visit: Yes Status: Acute Code(s): K57.20 - DVTRCLI OF LG INT W PE RFORATION AND ABSCESS W/O BLEEDING SNOMED Code(s): 58060403 Plan: 1patient to the hospital with sepsis in this patient who did have a low-grade fever elevated white count mild tachycardia source is likely abdominal in this patient with evidence of acute sigmoid diverticulitis complicated with perforation and possible involvement of lang diverticular abscess, we will need to cover for the enteric gram-negative both aerobes and anaerobes 2patient did have resolution of his fever and the white count is trending down, patient still have extensive infection recommend getting the patient on IV Zosyn over the next 48 to 72 hours and a possible repeat CT that will help determine his discharge antibiotics with IV or oral at the bedside questions were answered Dictation was produced using [employer] dictation software. please excuse any g rammatical, word or spelling errors. Time with Patient: Less than 30
[2023-06-10 12:32] LABS: ALT 24 U/L (10-49); AST 21 U/L (14-35); Albumin 3.8 g/dL (3.8-4.9); Albumin/Globulin Ratio 1.27 Ratio (1.60-3.17); Alkaline Phosphatase 80 U/L (41-126); Blood Urea Nitrogen 10.7 mg/dL (9.0-27.0); Carbon Dioxide 25.6 mmol/L (21.6-31.8); Chloride 100 mmol/L (96-109); Glucose 96 mg/dL (70-110); Potassium 3.7 mmol/L (3.5-5.5); Sodium 140 mmol/L (135-145); Total Bilirubin 0.7 mg/dL (0.3-1.2); Total Protein 6.8 g/dL (6.2-8.2)
--- NOTE | 2023-06-10 12:40 | PN ---
PROGRESS NOTE DATE OF SERVICE: 06/10/2023 SUBJECTIVE: This is a 43-year-old gentleman, admitted with sigmoid diverticulitis and microperforation, improving significantly. No chest pain, no palpitations, no fever. White count is 12.13 today. OBJECTIVE: VITAL SIGNS: Pulse is 81, blood pressure 140/70, respirations 18. CHEST: Clear to auscultation. ABDOMEN: Soft, obese, in minimal discomfort. LABORATORY DATA: Reviewed. ASSESSMENT: 1. Acute sigmoid diverticulitis as well as microperforation, on medical treatment. 2. Continued fever, improving. 3. Tiny droplets of free intraperitoneal air in the CT scan. 4. Incidental note of 6.5-mm pulmonary nodule for outpatient followup. 5. Hypertension. 6. Increased WBC. RECOMMENDATIONS: Recommended to continue current medications, continue symptomatic treatment otherwise at this time. Repeat labs in the morning. Continue with IV antibiotics. Follow up with Pulmonary for pulmonary nodules. Further recommendations to follow. MMODL / IJN: [id number] /
--- NOTE | 2023-06-10 15:28 | P.PN ---
Subjective Progress Note Date: 06/10/23 CHIEF COMPLAINT: Perforated diverticulitis HISTORY OF PRESENT ILLNESS: Patient reports feeling better each day. He has no pain currently. He did have some pain that was relieved after passing some flatus last night. He has had a bowel movement. Afebrile. WBC is down from 16-12 PHYSICAL EXAM: VITAL SIGNS: Reviewed. GENERAL: Well-developed in no acute distress. ABDOMEN: Soft. Nondistended. Nontender. NEUROLOGIC: Alert and oriented. Cranial nerves II through XII grossly intact. ASSESSMENT: 1. Diverticulitis with microperforation and potentially developing abscess PLAN: -Advance diet to regular -Discontinue IV fluids -Encourage patient to increase activity level -Repeat CBC in a.m. -Anticipate possible discharge tomorrow -Discharge antibiotics per ID service Physician Flexographic Printing Machinist note has been reviewed by physician. Signing provider agrees with the documented findings, assessment, and plan of care. Objective - Vital Signs Vital signs: Vital Signs Temp 98.3 F 06/10/23 07:29 Pulse 81 06/10/23 07:29 Resp 18 06/10/23 07:29 BP 147/84 06/10/23 07:29 Pulse Ox 96 06/10/23 07:29 FiO2 Intake & Output 06/09/23 06/10/23 06/10/23 18:59 06:59 18:59 Other: Voiding Method Toilet # Voids 5 2 1 # Bowel Movements 1 - Labs CBC & Chem 7: 06/10/23 06:02 06/10/23 06:02 Labs: Abnormal Lab Results - Last 24 Hours (Table) 06/10/23 06/10/23 Range/Units 06:02 06:02 WBC 12.13 H (4.50-10.00) X 10*3/uL Hgb 12.7 L (13.0-17.0) g/dL Hct 38.5 L (39.6-50.0) % Immature Gran # 0.10 H (0.00-0.04) X 10*3/uL Neutrophils # 9.46 H (1.80-7.70) X 10*3/uL Anion Gap 14.40 H (4.00-12.00) mmol/L BUN/Creatinine Ratio 10.70 L (12.00-20.00) Ratio Albumin/Globulin Ratio 1.27 L (1.60-3.17) Ratio Microbiology - Last 24 Hours (Table) 06/08/23 12:21 Blood Culture - Preliminary Blood 06/07/23 08:25 Blood Culture - Preliminary Blood 06/07/23 08:10 Blood Culture - Preliminary Blood
[2023-06-11 10:20] LABS: HGB 12.2 g/dL (13.0-17.0); MCH 28.4 pg (27.0-32.0); MCV 86.2 FL (80.0-97.0); Mean Platelet Volume 10.5 FL (9.5-12.2); NRBC Per 100 WBC 0 X 10*3/uL (0.00-0.01); Platelet Count 257 X 10*3/uL (140-440); RBC 4.29 X 10*6/uL (4.40-5.60); RDW 12.8 % (11.5-14.5); WBC 10.27 X 10*3/uL (4.50-10.00)
[2023-06-11 10:39] LABS: BUN/Creat Ratio 9.56 Ratio (12.00-20.00); Blood Urea Nitrogen 8.6 mg/dL (9.0-27.0); Calcium 8.8 mg/dL (8.7-10.3); Carbon Dioxide 25.1 mmol/L (21.6-31.8); Chloride 103 mmol/L (96-109); Glucose 97 mg/dL (70-110); Potassium 3.6 mmol/L (3.5-5.5); Sodium 140 mmol/L (135-145)
--- NOTE | 2023-06-11 11:16 | P.PN ---
Subjective Progress Note Date: 06/11/23 Principal diagnosis: Reason for follow-up is complicated diverticulitis with peridiverticular abscess Patient is a 43-year-old male with a past medical history significant for hypertension presenting to the ER for evaluation of abdominal pain and constipation, patient been diagnosed with the complicated diverticulitis with perforation and mild peridiverticular abscess. On today's evaluation that is 06/11/2023,the patient remains to be afebrile, patient is on room air not requiring supplemental oxygen and denies any shortness of breath no chest pain or cough.Patient denies having any nausea or vomiting, abdominal pain has much improved and the patient did have a large bowel movement last night and feeling much relieved. The patient white count 10.27, creatinine 0.9, blood culture negative Objective - Vital Signs Vital signs: Vital Signs Temp 98.8 F 06/11/23 06:47 Pulse 87 06/11/23 06:47 Resp 18 06/11/23 06:47 BP 151/85 06/11/23 06:47 Pulse Ox 98 06/11/23 06:47 FiO2 Intake & Output 06/10/23 06/11/23 06/11/23 18:59 06:59 18:59 Other: Voiding Method Toilet # Voids 4 2 - Exam GENERAL DESCRIPTION: Middle-age male lying in bed in no distress RESPIRATORY SYSTEM: Unlabored breathing , decreased breath sounds at bases HEART: S1 S2 regular rate and rhythm , ABDOMEN: Soft , mild distention but no significant tenderness EXTREMITIES: No edema feet - Labs CBC & Chem 7: 06/11/23 06:20 06/11/23 06:20 Labs: Abnormal Lab Results - Last 24 Hours (Table) 06/10/23 06/10/23 Range/Units 06:02 06:02 WBC 12.13 H (4.50-10.00) X 10*3/uL Hgb 12.7 L (13.0-17.0) g/dL Hct 38.5 L (39.6-50.0) % Immature Gran # 0.10 H (0.00-0.04) X 10*3/uL Neutrophils # 9.46 H (1.80-7.70) X 10*3/uL Anion Gap 14.40 H (4.00-12.00) mmol/L BUN/Creatinine Ratio 10.70 L (12.00-20.00) Ratio Albumin/Globulin Ratio 1.27 L (1.60-3.17) Ratio Microbiology - Last 24 Hours (Table) 06/08/23 12:21 Blood Culture - Preliminary Blood 06/07/23 08:25 Blood Culture - Preliminary Blood 06/07/23 08:10 Blood Culture - Preliminary Blood Assessment and Plan (1) Intra-abdominal abscess Current Visit: Yes Status: Acute Code(s): K65.1 - PERITONEAL ABSCESS SNOMED Code(s): 38893545 (2) Leukocytosis Current Visit: Yes Status: Acute Code(s): D72.829 - ELEVATED WHITE BLOOD CELL COUNT, UNSPECIFIED SNOMED Code(s): 979333356 (3) Diverticulitis of colon with perforation Current Visit: Yes Status: Acute Code(s): K57.20 - DVTRCLI OF LG INT W PERFORATION AND ABSCESS W/O BLEEDING SNOMED Code(s): 84931269 Plan: 1patient to the hospital with sepsis in this patient who did have a low-grade fever elevated white count mild tachycardia source is likely abdominal in this patient with evidence of acute sigmoid diverticulitis complicated with perforation and possible involvement of lang diverticular abscess, we will need to cover for the enteric gram-negative both aerobes and anaerobes 2patient did have resolution of his fever and the white count is trending down, patient did have extensive diverticulitis with perforation concerning for an abscess we will obtain his CT abdominal pelvis if overall resolution or improvement of the diverticulitis and there is no abscess we will consider oral antibiotics however if still any evidence of residual abscess he will benefit from IV biotic this has been discussed in detail with the patient and the family question concern answered. Dictation was produced using [employer] software. please excuse any grammatical, word or spelling errors. Time with Patient: Less than 30
[2023-06-11 11:21] LABS: Basophils # (A) 0.05 X 10*3/uL (0.00-0.10); Basophils % (A) 0.5 %; Eosinophils # (A) 0.05 X 10*3/uL (0.04-0.35); Eosinophils % (A) 0.5 %; Lymphocytes # (A) 1.62 X 10*3/uL (0.90-5.00); Lymphocytes % (A) 15.8 %; Monocytes # (A) 0.96 X 10*3/uL (0.20-1.00); Monocytes % (A) 9.3 %; Neutrophils # (A) 7.52 X 10*3/uL (1.80-7.70); Neutrophils % (A) 73.2 %; RBC Morphology Normal (Normal)
[2023-06-11] MEDS: IOPAMIDOL CONTRAST (ORAL USE) VIAL PO PRN (12:02)
--- NOTE | 2023-06-11 13:19 | P.PN ---
Subjective Progress Note Date: 06/11/23 This is a pleasant 43-year-old male who was recently admitted under surgery services found to have sigmoid diverticulitis with microperforation and is being closely monitored on antibiotics. Patient continues on IV Zosyn with infectious disease following and recommending repeat CT abdomen for evaluation. Patient reports to feeling improved and did have a mild right lower quadrant abdominal discomfort yesterday after advancing diet and prior to having a bowel movement. Patient did note to have excess gas as well. Patient is voiding with no difficulties and has been up and walking is much as tolerated. Patient discussed about possibly being discharged and awaiting repeat CT abdomen to evaluate if patient will require IV antibiotics or home on oral medications. Patient is currently afebrile white count is trending down and patient is tolerating diet with no reported nausea or vomiting or increased abdominal pain at this time. Review of systems: Constitutional: No reports of fatigue, fever, or chills Cardiovascular: No reports of chest pain or palpitations Respiratory: No reports of shortness of breath or cough GI: No reports of nausea, no reports of vomiting, no diarrhea, reports stool is loose : No reports of dysuria or retention Neurovascular: No reports of generalized weakness All medications have been reviewed PHYSICAL EXAMINATION: GENERAL: The patient is alert and oriented x4, Well developed, well nourished. Morbidly obese HEENT: Pupils are round and equally reacting to light. EOMI. no scleral icterus. No conjunctival pallor. Normocephalic, atraumatic. No pharyngeal erythema. No thyromegaly. CARDIOVASCULAR: S1 and S2 muffled PULMONARY: diminished breath sounds bilaterally otherwise clear to auscultation with no wheezing or rhonchi noted. ABDOMEN: soft. Nontender on exam. obese. non-distended, normoactive bowel sounds. No palpable organomegaly. MUSCULOSKELETAL: No joint swelling or deformity. EXTREMITIES: No cyanosis, clubbing, or pedal edema. NEUROLOGICAL: Gross neurological examination did not reveal any focal deficits. SKIN: No rashes. Assessment: Acute sigmoid diverticulitis as well as microperforation, on antibiotics Leukocytosis likely secondary to above, improving and trending down Tiny droplets of free intraperitoneal air noted on initial CT scan Incidental note of 6.5 mm pulmonary nodule, will need outpatient follow-up History of hypertension Morbid obesity with a BMI of 40.0 GI prophylaxis DVT prophylaxis Full code Plan: Recommend to continue with current medications and management per general surgery services. Infectious disease following and patient is maintained on antibiotics in the form of Zosyn Repeat CT abdomen ordered and pending for evaluation of abscess and if determining patient will be going home on oral versus IV antibiotic treatment Encouraged increase activity as tolerated Continue current diet and slowly advance as tolerated over the next few days Encouraged fluids and rest Recommend no heavy lifting or bending forward for the next week or so until follow-up with surgery outpatient Patient is medically stable once cleared by general surgery and infectious disease for discharge Thank you kindly for this consultation. We will continue to follow with general surgery during hospitalization The impression and plan of care has been dictated by Anna Falcon, nurse practitioner as directed. Dr. Favio MD I have performed a history and examination and MDM of this patient, discussed the same with the dictator, and agree with the dictator's assessment and plan as written ,documented as a scribe. Based on total visit time, I have performed more than 50% of the visit. Any additional findings or plans will be noted. Objective - Vital Signs Vital signs: Vital Signs Temp 98.8 F 06/11/23 06:47 Pulse 87 06/11/23 06:47 Resp 18 06/11/23 06:47 BP 151/85 06/11/23 06:47 Pulse Ox 98 06/11/23 06:47 FiO2 Intake & Output 06/10/23 06/11/23 06/11/23 18:59 06:59 18:59 Other: Voiding Method Toilet # Voids 4 2 - Labs CBC & Chem 7: 06/11/23 06:20 06/11/23 06:20 Labs: Abnormal Lab Results - Last 24 Hours (Table) 06/10/23 06/10/23 Range/Units 06:02 06:02 WBC 12.13 H (4.50-10.00) X 10*3/uL Hgb 12.7 L (13.0-17.0) g/dL Hct 38.5 L (39.6-50.0) % Immature Gran # 0.10 H (0.00-0.04) X 10*3/uL Neutrophils # 9.46 H (1.80-7.70) X 10*3/uL Anion Gap 14.40 H (4.00-12.00) mmol/L BUN/Creatinine Ratio 10.70 L (12.00-20.00) Ratio Albumin/Globulin Ratio 1.27 L (1.60-3.17) Ratio Microbiology - Last 24 Hours (Table) 06/08/23 12:21 Blood Culture - Preliminary Blood 06/07/23 08:25 Blood Culture - Preliminary Blood 06/07/23 08:10 Blood Culture - Preliminary Blood
--- NOTE | 2023-06-11 14:27 | CT ---
EXAMINATION: CT ABDOMEN AND PELVIS WITH IV CONTRAST DATE OF EXAMINATION: 06/11/2023. COMPARISON: 06/07/2023. INDICATION: Follow-up for diverticular abscess. PROCEDURE: Axial CT of the abdomen and pelvis was performed with contrast and sagittal and coronal reformatted images were performed. CT dose lowering techniques were used, to include: automated expos ure control, adjustment for patient size, and/or use of iterative reconstruction. FINDINGS: LOWER CHEST : The visualized lung bases are clear. There are no pleural or pericardial effusions. ABDOMEN: Liver and Biliary system: Normal. Adrenal glands: Normal. Kidneys and ureters: There is a 4.3 cm mass in the upper pole the right kidney that appears to be enh ancing and slightly washes out on the delayed contrast enhanced images suspicious for renal cell carc inoma.. The kidneys otherwise appear unremarkable. Spleen: Normal. Pancreas: Normal. Gallbladder: Normal. Lymph nodes, Peritoneum and mesentery: There is no mesenteric or retroperitoneal lymphadenopathy. Gastrointestinal tract: There are no dilated loops of bowel or free intraperitoneal air. The prev iously seen free intraperitoneal air on the diaphragm has resolved. There is mild to moderate descend ing colonic and sigmoid colonic diverticulosis with persistent abscess within the pelvic region. The overall size of the abscess has increased measuring approximately 6.0 x 7.67 m and previously measure d 4.9 x 4.9 cm and is positioned in the rectal space and abuts the anterior aspect of the rectum as w ell as the inferior aspect of the sigmoid colon. Additional abscesses seen which has a projection sup eriorly along the right pelvis which also appears more prominent to similar to the previous examinati on this location. Aorta/IVC: Mild vascular calcification throughout the abdominal aorta without evidence of aneurysma l dilation or dissection. IVC normal. Abdominal wall: Normal. PELVIS: Fluid: Abscess as above. Lymph Nodes: There is no pelvic or inguinal lymphadenopathy.. Urinary bladder: Normal. BONES: There are no osseous destructive lesions.. ADDITIONAL SIGNIFICANT FINDINGS: None. IMPRESSION: 1. Increasing size of pelvic diverticular abscess as above. 2. Mass within the right kidney is suspicious for a renal cell carcinoma. Urology consult and further workup is recommended.
--- NOTE | 2023-06-11 15:32 | P.PN ---
Subjective Progress Note Date: 06/11/23 CHIEF COMPLAINT: Perforated diverticulitis HISTORY OF PRESENT ILLNESS: Patient reports he is feeling better today. He reports his pain is improving. He did have a bowel movement. He is tolerating regular diet. Afebrile. White count is down to 10. Repeat CT scan abdomen pelvis reported increase in size of pelvic diverticular abscess. Also noted mass within the right kidney suspicious for renal cell carcinoma. PHYSICAL EXAM: VITAL SIGNS: Reviewed. GENERAL: Well-developed in no acute distress. ABDOMEN: Soft. Nondistended. Nontender. NEUROLOGIC: Alert and oriented. Cranial nerves II through XII grossly intact. ASSESSMENT: 1. Diverticulitis with microperforation and worsening abscess PLAN: -Consult interventional radiology for drainage of diverticular abscess -Consult placed for PICC line -credit manager arranging IV antibiotics outpatient -Antibiotics per infectious disease -Consult urology regarding right kidney mass -Continue regular diet -Repeat CBC in a.m. -No plans for discharge today Physician Reconciler note has been reviewed by physician. Signing provider agrees with the documented findings, assessment, and plan of care. Objective - Vital Signs Vital signs: Vital Signs Temp 99.5 F 06/11/23 13:44 Pulse 83 06/11/23 13:44 Resp 17 06/11/23 13:44 BP 169/91 06/11/23 13:44 Pulse Ox 100 06/11/23 13:44 FiO2 Intake & Output 06/10/23 06/11/23 06/11/23 18:59 06:59 18:59 Other: Voiding Method Toilet # Voids 4 2 - Labs CBC & Chem 7: 06/11/23 06:20 06/11/23 06:20 Labs: Abnormal Lab Results - Last 24 Hours (Table) 06/11/23 06/11/23 Range/Units 06:20 06:20 WBC 10.27 H (4.50-10.00) X 10*3/uL RBC 4.29 L (4.40-5.60) X 10*6/uL Hgb 12.2 L (13.0-17.0) g/dL Hct 37.0 L (39.6-50.0) % Immature Gran # 0.07 H (0.00-0.04) X 10*3/uL BUN 8.6 L (9.0-27.0) mg/dL BUN/Creatinine Ratio 9.56 L (12.00-20.00) Ratio Microbiology - Last 24 Hours (Table) 06/08/23 12:21 Blood Culture - Preliminary Blood 06/07/23 08:25 Blood Culture - Preliminary Blood 06/07/23 08:10 Blood Culture - Preliminary Blood
--- NOTE | 2023-06-12 07:52 | P.GSCN ---
History of Present Illness Consult date: 06/12/23 History of present illness: 43 yo male in the hospital with diverticulitis and a diverticular abscess. A ct scan was performed for this evaluation that identified a 4 cm right renal mass that appears solid worrisome for a malignancy. We were asked to see the patient. He has no blood in the urine. There are no other previous xrays to compare the present xrays with. He has had no pain. He has no gross hematuria. He has had no awareness of this mass until the most recent x-ray. He is otherwise healthy other than the diverticular abscess. 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 Review of Systems All systems: negative - Constitutional Denies fever, Denies weight loss - EENT Eyes: denies blurred vision Ears, nose, mouth and throat: Denies dysphagia - Cardiovascular Denies chest pain, Denies shortness of breath - Respiratory Denies cough, Denies 7 - Gastrointestinal Reports as per HPI - Genitourinary Denies dysuria, Denies hematuria - Integumentary Denies rash, Denies unusual bruising - Neurological Denies headaches, Denies syncope - Hematologic/Lymphatic Denies easy bleeding, Denies easy bruising Past Medical History Past Medical History: Hypertension History of Any Multi-Drug Resistant Organisms: None Reported Past Surgical History: No Surgical Hx Reported Past Anesthesia/Blood Transfusion Reactions: No Reported Reaction Past Psychological History: No Psychological Hx Reported Smoking Status: Never smoker Past Alcohol Use History: Occasional Past Drug Use History: None Reported Medications and Allergies Home Medications Medication Instructions Recorded Confirmed Type lisinopriL 30 mg PO DAILY 06/07/23 06/07/23 History tadalafiL [Cialis] 20 mg PO Q72H PRN 06/07/23 06/07/23 History Allergies Allergy/AdvReac Type Severity Reaction Status Date / Time No Known Allergies Allergy Verified 06/07/23 11:31 Surgical - Exam Vital Signs Temp Pulse Resp BP Pulse Ox 99.2 F 95 20 171/100 96 06/07/23 06:18 06/07/23 06:18 06/07/23 06:18 06/07/23 06:18 06/07/23 06:18 - General well developed, well nourished, no distress - Eyes normal ocular movement, no icteric - ENT no hearing loss, no congestion - Neck no masses, trachea midline - Respiratory normal respiratory effort, clear to auscultation - Abdomen Abdomen: soft, non tender, no guarding, no rigid, no rebound - Integumentary no rash, no abnormal pigmentation - Neurologic no disoriented, no combative - Psychiatric oriented to time, oriented to person, oriented to place, speech is normal, memory intact Results - Labs 06/11/23 06:20 06/11/23 06:20 Abnormal Lab Results - Last 24 Hours (Table) 06/11/23 06/11/23 Range/Units 06:20 06:20 WBC 10.27 H (4.50-10.00) X 10*3/uL RBC 4.29 L (4.40-5.60) X 10*6/uL Hgb 12.2 L (13.0-17.0) g/dL Hct 37.0 L (39.6-50.0) % Immature Gran # 0.07 H (0.00-0.04) X 10*3/uL BUN 8.6 L (9.0-27.0) mg/dL BUN/Creatinine Ratio 9.56 L (12.00-20.00) Ratio Microbiology - Last 24 Hours (Table) 06/08/23 12:21 Blood Culture - Preliminary Blood Diabetes panel 06/11/23 Range/Units 06:20 Sodium 140 (135-145) mmol/L Potassium 3.6 (3.5-5.5) mmol/L Chloride 103 (96-109) mmol/L Carbon Dioxide 25.1 (21.6-31.8) mmol/L BUN 8.6 L (9.0-27.0) mg/dL Creatinine 0.9 (0.6-1.5) mg/dL Glucose 97 (70-110) mg/dL Calcium 8.8 (8.7-10.3) mg/dL Calcium panel 06/11/23 Range/Units 06:20 Calcium 8.8 (8.7-10.3) mg/dL Pituitary panel 06/11/23 Range/Units 06:20 Sodium 140 (135-145) mmol/L Potassium 3.6 (3.5-5.5) mmol/L Chloride 103 (96-109) mmol/L Carbon Dioxide 25.1 (21.6-31.8) mmol/L BUN 8.6 L (9.0-27.0) mg/dL Creatinine 0.9 (0.6-1.5) mg/dL Glucose 97 (70-110) mg/dL Calcium 8.8 (8.7-10.3) mg/dL Adrenal panel 06/11/23 Range/Units 06:20 Sodium 140 (135-145) mmol/L Potassium 3.6 (3.5-5.5) mmol/L Chloride 103 (96-109) mmol/L Carbon Dioxide 25.1 (21.6-31.8) mmol/L BUN 8.6 L (9.0-27.0) mg/dL Creatinine 0.9 (0.6-1.5) mg/dL Glucose 97 (70-110) mg/dL Calcium 8.8 (8.7-10.3) mg/dL - Imaging CT scan - abdomen: image reviewed CT scan - pelvis: report reviewed, image reviewed Assessment and Plan Assessment: Impression: acute diverticulitis with diverticular abscess. right renal mass worrisome for malignancy. Recommendations: I discussed the issue with the patient. I I will the CAT scan with my partners to determine whether biopsies may be indicated, Whether radical or a partial nephrectomy would be indicated. The patient should see me in the office in about 10 days.
[2023-06-12 07:59] LABS: INR 1.2 (<1.2); Prothrombin Time 12.6 sec (10.0-12.5)
[2023-06-12 08:46] VITALS: BMI 39.9
[2023-06-12 11:08] LABS: HGB 12.6 g/dL (13.0-17.0); MCH 28.3 pg (27.0-32.0); MCHC 32.3 g/dL (32.0-37.0); MCV 87.6 FL (80.0-97.0); Mean Platelet Volume 10.2 FL (9.5-12.2); NRBC Per 100 WBC 0 X 10*3/uL (0.00-0.01); Platelet Count 289 X 10*3/uL (140-440); RBC 4.45 X 10*6/uL (4.40-5.60); RDW 12.8 % (11.5-14.5); WBC 11.95 X 10*3/uL (4.50-10.00)
[2023-06-12 11:40] LABS: Basophils # (A) 0.05 X 10*3/uL (0.00-0.10); Basophils % (A) 0.4 %; Eosinophils # (A) 0.07 X 10*3/uL (0.04-0.35); Eosinophils % (A) 0.6 %; Lymphocytes # (A) 1.48 X 10*3/uL (0.90-5.00); Lymphocytes % (A) 12.4 %; Monocytes # (A) 0.92 X 10*3/uL (0.20-1.00); Monocytes % (A) 7.7 %; Neutrophils # (A) 9.33 X 10*3/uL (1.80-7.70); Neutrophils % (A) 78.1 %
--- NOTE | 2023-06-12 13:06 | P.PN ---
Subjective Progress Note Date: 06/12/23 Principal diagnosis: Reason for follow-up is complicated diverticulitis with peridiverticular abscess Patient is a 43-year-old male with a past medical history significant for hypertension presenting to the ER for evaluation of abdominal pain and constipation, patient been diagnosed with the complicated diverticulitis with perforation and mild peridiverticular abscess. On today's evaluation that is 06/12/2023, the patient continues to be afebrile, the patient is on room air and breathing comfortably, the Pt denies having any chest pain or cough, the patient abdominal pain has improved did have a bowel movement had no nausea vomiting feeling better. Patient white count is 11.95 [address] shows enlargement of the abscess Objective - Vital Signs Vital signs: Vital Signs Temp 98.6 F 06/12/23 06:46 Pulse 85 06/12/23 06:46 Resp 17 06/12/23 06:46 BP 154/83 06/12/23 06:46 Pulse Ox 98 06/12/23 06:46 FiO2 Intake & Output 06/11/23 06/12/23 06/12/23 18:59 06:59 18:59 Weight 145.15 kg Other: Voiding Method Toilet # Voids 3 2 # Bowel Movements 1 - Exam GENERAL DESCRIPTION: Middle-age male lying in bed in no distress RESPIRATORY SYSTEM: Unlabored breathing , decreased breath sounds at bases HEART: S1 S2 regular rate and rhythm , ABDOMEN: Soft , mild distention but no significant tenderness EXTREMITIES: No edema feet - Labs CBC & Chem 7: 06/12/23 06:27 06/11/23 06:20 Labs: Abnormal Lab Results - Last 24 Hours (Table) 06/11/23 06/11/23 06/12/23 Range/Units 06:20 06:20 06:27 WBC 10.27 H (4.50-10.00) X 10*3/uL RBC 4.29 L (4.40-5.60) X 10*6/uL Hgb 12.2 L (13.0-17.0) g/dL Hct 37.0 L (39.6-50.0) % Immature Gran # 0.07 H (0.00-0.04) X 10*3/uL PT 12.6 H (10.0-12.5) sec INR 1.2 H (<1.2) BUN 8.6 L (9.0-27.0) mg/dL BUN/Creatinine Ratio 9.56 L (12.00-20.00) Ratio Microbiology - Last 24 Hours (Table) 06/08/23 12:21 Blood Culture - Preliminary Blood Assessment and Plan (1) Intra-abdominal abscess Current Visit: Yes Status: Acute Code(s): K65.1 - PERITONEAL ABSCESS SNOMED Code(s): 87766340 (2) Leukocytosis Current Visit: Yes Status: Acute Code(s): D72.829 - ELEVATED WHITE BLOOD CELL COUNT, UNSPECIFIED SNOMED Code(s): 044526511 (3) Diverticulitis of colon with perforation Current Visit: Yes Status: Acute Code(s): K57.20 - DVTRCLI OF LG INT W PERFORATION AND ABSCESS W/O BLEEDING SNOMED Code(s): 41793191 Plan: 1patient to the hospital with sepsis in this patient who did have a low-grade fever elevated white count mild tachycardia source is likely abdominal in this patient with evidence of acute sigmoid diverticulitis complicated with perforation and possible involvement of lang diverticular abscess, we will need to cover for the enteric gram-negative both aerobes and anaerobes 2patient did have resolution of his fever however the patient was noticed to have worsening of the abscess on repeat CT IR has been consulted for drainage which is scheduled for this afternoon as the patient insisting on going home if everything goes well may go home tomorrow with a 2-week course of IV Zosyn antibiotic may be adjusted further on the basis of culture that will be taken at the time of CT-guided drainage Patient and have multiple questions were answered Dictation was produced using [employer] software. please excuse any grammatical, word or spelling errors. Time with Patient: Less than 30
--- NOTE | 2023-06-12 15:02 | P.PN ---
Subjective Progress Note Date: 06/12/23 This is a pleasant 43-year-old male who was recently admitted under surgery services found to have sigmoid diverticulitis with microperforation and is being closely monitored on antibiotics. Patient continues on IV Zosyn with infectious disease following and recommending repeat CT abdomen for evaluation. Patient reports to feeling improved and did have a mild right lower quadrant abdominal discomfort yesterday after advancing diet and prior to having a bowel movement. Patient did note to have excess gas as well. Patient is voiding with no difficulties and has been up and walking is much as tolerated. Patient discussed about possibly being discharged and awaiting repeat CT abdomen to evaluate if patient will require IV antibiotics or home on oral medications. Patient is currently afebrile white count is trending down and patient is tolerating diet with no reported nausea or vomiting or increased abdominal pain at this time. 06/12/2023 Patient seen in follow-up today admitted under general surgery with infectious disease following. Patient maintained on antibiotics and underwent repeat CT abdomen pelvis with contrast showing increasing size of pelvic diverticular abscess and a mass within the right kidney that is suspicious for renal cell carcinoma urology was consulted. Patient has received a midline for continued IV antibiotic therapy and awaiting to see interventional radiology for possible drainage tube of the abscess. Patient currently n.p.o. and denies any worsening abdominal pain. Blood cultures remain negative and white count slightly elevated although on a downward trend at 11.95. Vital signs have been stable and patient has remained afebrile. Patient is having bowel movements and urinating with no difficulties. Encouraged to increase activity as tolerated. Review of systems: Constitutional: No reports of fatigue, fever, or chills Cardiovascular: No reports of chest pain or palpitations Respiratory: No reports of shortness of breath or cough GI: No reports of nausea, no reports of vomiting, no diarrhea, reports stool is loose : No reports of dysuria or retention Neurovascular: No reports of generalized weakness All medications have been reviewed PHYSICAL EXAMINATION: GENERAL: The patient is alert and oriented x4, Well developed, well nourished. Morbidly obese HEENT: Pupils are round and equally reacting to light. EOMI. no scleral icterus. No conjunctival pallor. Normocephalic, atraumatic. No pharyngeal erythema. No thyromegaly. CARDIOVASCULAR: S1 and S2 muffled PULMONARY: diminished breath sounds bilaterally otherwise clear to auscultation with no wheezing or rhonchi noted. ABDOMEN: soft. Nontender on exam. obese. non-distended, normoactive bowel sounds. No palpable organomegaly. MUSCULOSKELETAL: No joint swelling or deformity. EXTREMITIES: No cyanosis, clubbing, or pedal edema. NEUROLOGICAL: Gross neurological examination did not reveal any focal deficits. SKIN: No rashes. Assessment: Acute sigmoid diverticulitis as well as microperforation, on antibiotics 4.3 cm mass in the upper pole on the right kidney with concerns of renal cell carcinoma, evaluated by urology recommending outpatient repeat imaging after abscess clears Persistent abscess within the pelvic region of the descending colon and sigmoid colon with an overall increase in size of the abscess measuring 6.0 x 7.67 and was previously 4.9 x 4.9 cm Leukocytosis likely secondary to above, improving and trending down Tiny droplets of free intraperitoneal air noted on initial CT scan Incidental note of 6.5 mm pulmonary nodule, will need outpatient follow-up History of hypertension Morbid obesity with a BMI of 40.0 GI prophylaxis DVT prophylaxis Full code Plan: Recommend to continue with current medications and management per general surgery services. Infectious disease following and patient is maintained on antibiotics in the form of Zosyn Repeat CT abdomen as mentioned above patient did receive a midline for outpatient IV antibiotics with concerns of continuing increased size of abscess and interventional radiology was consulted for drainage tube placement Encouraged increase activity as tolerated Continue current diet and slowly advance as tolerated over the next few days Encouraged fluids and rest Recommend no heavy lifting or bending forward for the next week or so until follow-up with surgery outpatient Patient is medically stable once cleared by general surgery and infectious disease for discharge Thank you kindly for this consultation. We will continue to follow with general surgery during hospitalization The impression and plan of care has been dictated by Anna Falcon, nurse practitioner as directed. Dr. Favio MD I have performed a history and examination and MDM of this patient, discussed the same with the dictator, and agree with the dictator's assessment and plan as written ,documented as a scribe. Based on total visit time, I have performed more than 50% of the visit. Any additional findings or plans will be noted. Objective - Vital Signs Vital signs: Vital Signs Temp 98.6 F 06/12/23 06:46 Pulse 75 06/12/23 13:39 Resp 18 06/12/23 13:39 BP 127/86 06/12/23 13:39 Pulse Ox 98 06/12/23 13:39 FiO2 Intake & Output 06/11/23 06/12/23 06/12/23 18:59 06:59 18:59 Output Total 100 Balance -100 Weight 145.15 kg Output: Drainage 100 Left Buttock 100 Other: Voiding Method Toilet # Voids 3 2 # Bowel Movements 1 - Labs CBC & Chem 7: 06/12/23 06:27 06/11/23 06:20 Labs: Abnormal Lab Results - Last 24 Hours (Table) 06/12/23 06/12/23 Range/Units 06:27 06:27 WBC 11.95 H (4.50-10.00) X 10*3/uL Hgb 12.6 L (13.0-17.0) g/dL Hct 39.0 L (39.6-50.0) % Immature Gran # 0.10 H (0.00-0.04) X 10*3/uL Neutrophils # 9.33 H (1.80-7.70) X 10*3/uL PT 12.6 H (10.0-12.5) sec INR 1.2 H (<1.2) Microbiology - Last 24 Hours (Table) 06/08/23 12:21 Blood Culture - Preliminary Blood
--- NOTE | 2023-06-12 15:05 | P.PN ---
Subjective Progress Note Date: 06/12/23 CHIEF COMPLAINT: Perforated diverticulitis HISTORY OF PRESENT ILLNESS: Patient is status post CT-guided drainage of diverticular abscess. There is purulent drainage noted. Patient complains of pain at the insertion site of the drain. Otherwise his abdominal pain had resolved. Denies any nausea or vomiting. Tolerating diet. Did have a bowel movement. Afebrile. WBC did go up from 10.2-11.95. Patient also has midline placed for IV antibiotics. PHYSICAL EXAM: VITAL SIGNS: Reviewed. GENERAL: Well-developed in no acute distress. ABDOMEN: Soft. Nondistended. Tender at insertion site of drain. Purulent drainage noted NEUROLOGIC: Alert and oriented. Cranial nerves II through XII grossly intact. ASSESSMENT: 1. Diverticulitis with microperforation and worsening abscess status post CT-gu ided drain placement 2. Right kidney mass. Evaluated by urology. PLAN: -Possible discharge tomorrow if patient is feeling well -Outpatient IV antibiotics have been arranged. corporate traffic manager has home care coming out to patient at 12:00 tomorrow at his house -Discharge antibiotics per infectious disease -Repeat CBC in a.m. -Patient follow-up with urology outpatient Physician Donor Services Manager note has been reviewed by physician. Signing provider agrees with the documented findings, assessment, and plan of care. Objective - Vital Signs Vital signs: Vital Signs Temp 98.6 F 06/12/23 06:46 Pulse 75 06/12/23 13:39 Resp 18 06/12/23 13:39 BP 127/86 06/12/23 13:39 Pulse Ox 98 06/12/23 13:39 FiO2 Intake & Output 06/11/23 06/12/23 06/12/23 18:59 06:59 18:59 Output Total 100 Balance -100 Weight 145.15 kg Output: Drainage 100 Left Buttock 100 Other: Voiding Method Toilet # Voids 3 2 # Bowel Movements 1 - Labs CBC & Chem 7: 06/12/23 06:27 06/11/23 06:20 Labs: Abnormal Lab Results - Last 24 Hours (Table) 06/12/23 06/12/23 Range/Units 06:27 06:27 WBC 11.95 H (4.50-10.00) X 10*3/uL Hgb 12.6 L (13.0-17.0) g/dL Hct 39.0 L (39.6-50.0) % Immature Gran # 0.10 H (0.00-0.04) X 10*3/uL Neutrophils # 9.33 H (1.80-7.70) X 10*3/uL PT 12.6 H (10.0-12.5) sec INR 1.2 H (<1.2) Microbiology - Last 24 Hours (Table) 06/08/23 12:21 Blood Culture - Preliminary Blood
[2023-06-13 01:38] VITALS: TEMP 98.9
[2023-06-13 06:12] LABS: Basophils % (A) 0 %; Eosinophils # (A) 0.1 k/uL (0-0.7); Eosinophils % (A) 1 %; HCT 35.5 % (39.0-53.0); Lymphocytes # (A) 1.1 k/uL (1.0-4.8); Lymphocytes % (A) 11 %; MCH 29.1 pg (25.0-35.0); MCHC 33.7 g/dL (31.0-37.0); MCV 86.2 fL (80.0-100.0); Mean Platelet Volume 8.2; Monocytes # (A) 0.7 k/uL (0-1.0); Monocytes % (A) 7 %; Neutrophils # (A) 7.9 k/uL (1.3-7.7); Neutrophils % (A) 78 %; Platelet Count 255 k/uL (150-450); RBC 4.13 m/uL (4.30-5.90); RDW 13.1 % (11.5-15.5); WBC 10.2 k/uL (3.8-10.6)
[2023-06-13 07:30] VITALS: BP 144/67; PULSE 80; RESP 18
--- NOTE | 2023-06-13 10:29 | P.PN ---
Subjective Progress Note Date: 06/13/23 The patient is in the hospital with diverticulitis and diverticular abscess which was drained yesterday. Coincidentally was found to have a 4 cm right renal mass worrisome for malignancy. This has been reviewed by me and discussed with the patient yesterday. This morning I re-reviewing the x-rays and d iscussed with the patient and his follow-up. Objective - Vital Signs Vital signs: Vital Signs Temp 98.9 F 06/13/23 06:47 Pulse 80 06/13/23 08:00 Resp 18 06/13/23 08:00 BP 144/67 06/13/23 06:47 Pulse Ox 97 06/13/23 06:47 FiO2 Intake & Output 06/12/23 06/13/23 06/13/23 18:59 06:59 18:59 Output Total 100 2235 Balance -100 -2235 Weight 145.15 kg Output: Drainage 100 75 Left Buttock 100 75 Urine 2160 Other: Voiding Method Toilet Toilet # Voids 2 5 - Labs CBC & Chem 7: 06/13/23 05:27 06/11/23 06:20 Labs: Abnormal Lab Results - Last 24 Hours (Table) 06/12/23 06/13/23 Range/Units 06:27 05:27 WBC 11.95 H (4.50-10.00) X 10*3/uL RBC 4.13 L (4.30-5.90) m/uL Hgb 12.6 L 12.0 L (13.0-17.0) g/dL Hct 39.0 L 35.5 L (39.6-50.0) % Immature Gran # 0.10 H (0.00-0.04) X 10*3/uL Neutrophils # 9.33 H 7.9 H (1.80-7.70) X 10*3/uL Microbiology - Last 24 Hours (Table) 06/12/23 14:06 Gram Stain - Preliminary Aspirate Body Fluid Culture - Preliminary 06/07/23 08:25 Blood Culture - Final Blood 06/07/23 08:10 Blood Culture - Final Blood Assessment and Plan Assessment: Impression: Diverticular abscess undergoing antibiotic treatment and recent percutaneous drainage. Right Renal mass, 4 cm. Recommendations: The immediate treatment for the abscesses the most important thing. Renal mass will have to be dealt with in the relatively near future. I would like to see the patient in the office in a couple of weeks. He will need an MRI, kidney protocol give a further assessment of this mass so as to determine whether a right partial or radical nephrectomy would be appropriate. This has been discussed in length with the patient and his . They understand
--- NOTE | 2023-06-13 11:53 | CT ---
EXAMINATION TYPE: CT guided abscess drainage with pigtail catheter placement. DATE OF EXAM: 06/12/2023 1:44 PM CLINICAL INDICATION:Male, 43 years old with history of Pelvic diverticular abscess drainage tube inse rtio; Pelvic diverticular abscess drainage tube insertion, [facility] COMPARISON: CT 06/11/2023. TECHNIQUE: CT DLP: 5108 mGycm, Automated exposure control for dose reduction was used. Contrast used: mL of , none Oral contrast used: none ATTENDING: Adolph Medley D.O. PROCEDURE: DLP administered was [address] localizer images were taken which showed safest allowable access to the pelvic fluid colle ction. The patient was prepped, draped in the usual sterile fashion, and locally anesthetized. A 18 x 20 cm [place] anna marie blunt needle was used to access the pelvic fluid collection with return of puru lent fluid. Over 0.038 Bentson guidewire exchange an 8.5 yoruba pig tail catheter. Approximately 3 mL of purulent fluid was drained and sent to the lab for analysis. . There was no significant blood loss and post-procedure hemostasis was achieved. The patient tolerated the procedu re well without complication. Patient was transferred to the general medical floor in stable conditi on. IMPRESSION: CT guided placement of a percutaneous pigtail drainage catheter of the deep pelvis abscess.
[2023-06-13] MEDS: ERTAPENEM 1 GM in SODIUM CHLORIDE 0.9% 50 ML IVPB SCH (11:59)
--- NOTE | 2023-06-13 11:59 | P.PN ---
Subjective Progress Note Date: 06/13/23 Principal diagnosis: Reason for follow-up is complicated diverticulitis with peridiverticular abscess Patient is a 43-year-old male with a past medical history significant for hypertension presenting to the ER for evaluation of abdominal pain and constipation, patient been diagnosed with the complicated diverticulitis with perforation and mild peridiverticular abscess.Patient's status post CT-guided drainage of the diverticular abscess completed yesterday patient tolerated the procedure. On today's evaluation that is 06/13/2023, Patient is afebrile patient is cur rently on room air and denies having any shortness of breath, the patient denies any chest pain or cough, the patient denies any nausea vomiting did not have any abdominal pain and no diarrhea. Patient white count normalized to 10.2 CT-guided fluid cultures pending blood culture negative Objective - Vital Signs Vital signs: Vital Signs Temp 98.9 F 06/13/23 06:47 Pulse 80 06/13/23 08:00 Resp 18 06/13/23 08:00 BP 144/67 06/13/23 06:47 Pulse Ox 97 06/13/23 06:47 FiO2 Intake & Output 06/12/23 06/13/23 06/13/23 18:59 06:59 18:59 Output Total 100 2235 Balance -100 -2235 Weight 145.15 kg Output: Drainage 100 75 Left Buttock 100 75 Urine 2160 Other: Voiding Method Toilet Toilet # Voids 2 5 - Exam GENERAL DESCRIPTION: Middle-age male lying in bed in no distress RESPIRATORY SYSTEM: Unlabored breathing , decreased breath sounds at bases HEART: S1 S2 regular rate and rhythm , ABDOMEN: Soft , mild distention but no significant tenderness EXTREMITIES: No edema feet - Labs CBC & Chem 7: 06/13/23 05:27 06/11/23 06:20 Labs: Abnormal Lab Results - Last 24 Hours (Table) 06/12/23 06/13/23 Range/Units 06:27 05:27 WBC 11.95 H (4.50-10.00) X 10*3/uL RBC 4.13 L (4.30-5.90) m/uL Hgb 12.6 L 12.0 L (13.0-17.0) g/dL Hct 39.0 L 35.5 L (39.6-50.0) % Immature Gran # 0.10 H (0.00-0.04) X 10*3/uL Neutrophils # 9.33 H 7.9 H (1.80-7.70) X 10*3/uL Microbiology - Last 24 Hours (Table) 06/12/23 14:06 Gram Stain - Preliminary Aspirate Body Fluid Culture - Preliminary 06/07/23 08:25 Blood Culture - Final Blood 06/07/23 08:10 Blood Culture - Final Blood Assessment and Plan (1) Intra-abdominal abscess Current Visit: Yes Status: Acute Code(s): K65.1 - PERITONEAL ABSCESS SNOMED Code(s): 83761075 (2) Leukocytosis Current Visit: Yes Status: Acute Code(s): D72.829 - ELEVATED WHITE BLOOD CELL COUNT, UNSPECIFIED SNOMED Code(s): 747437333 (3) Diverticulitis of colon with perforation Current Visit: Yes Status: Acute Code(s): K57.20 - DVTRCLI OF LG INT W PERFORATION AND ABSCESS W/O BLEEDING SNOMED Code(s): 93634113 Plan: 1patient to the hospital with sepsis in this patient who did have a low-grade fever elevated white count mild tachycardia source is likely abdominal in this patient with evidence of acute sigmoid diverticulitis complicated with perforation and possible involvement of lang diverticular abscess, we will need to cover for the enteric gram-negative both aerobes and anaerobes 2patient did have resolution of his fever however the patient was noticed to have worsening of the abscess on repeat CT, the patient is status post IR drainage of this abscess both the patient and the insisting on going home. Given a dose of Invanz 1 g daily afterward the patient will start Zosyn at home antibiotic will decide further once the culture available and the patient to follow-up in the office next week multiple question concern answered Dictation was produced using [employer] dictation software. please excuse any grammatical, word or spelling errors. Time with Patient: Less than 30
--- NOTE | 2023-06-13 13:36 | P.PN ---
Subjective Progress Note Date: 06/13/23 Patient was recently admitted under surgery services found to have sigmoid diverticulitis with microperforation and is being closely monitored on antibiotics. This is a pleasant 43-year-old gentleman with a medical history of hypertension comes in with complaints of abdominal pain. Patient was admitted under surgery services found to have sigmoid diverticulitis with microperforation found on abdominal CT. There was mention of an adjacent developing abscess as well as an incidental note of a 6.5 mm pulmonary nodule. Additionally there was mention of a 4 cm right renal mass worrisome for malignancy. patient was started on antibiotic therapy and underwent CT-guided drainage tube placement for the abdominal abscess with interventional radiology. He has been followed by surgical services as well as infectious disease. Clinically he has improved he is not having abdominal pain at this point. He has been afebrile. Culture from the aspirate has been negative so far. Blood cultures are negative. Patient also had a mildly elevated white count of 17.4 on admission and has now normalized. He has had a repeat abdominal CT showing the CT-guided placement of a percutaneous pigtail drainage catheter of the deep pelvis abscess. Plan is for 2 weeks of outpatient therapy with IV Zosyn. Patient has a midline placed. Patient will need to follow-up with urology outpatient for further evaluation of the renal mass and also will need further evaluation of the pulmonary nodule. Review of Systems Constitutional: Denied any fatigue denied any fever. Cardio vascular: denied any chest pain, palpitations Gastrointestinal: denied any nausea, vomiting, diarrhea Pulmonary: Denied any shortness of breath cough Neurologic denied any new focal deficits All inpatient medications were reviewed and appropriate changes in these medications as dictated in the interval history and assessment and plan. PHYSICAL EXAMINATION: GENERAL: The patient is alert and oriented x3, not in any acute distress. Well developed, well nourished. HEENT: Pupils are round and equally reacting to light. EOMI. No scleral icterus. No conjunctival pallor. Normocephalic, atraumatic. No pharyngeal erythema. No thyromegaly. CARDIOVASCULAR: S1 and S2 present. No murmurs, rubs, or gallops. PULMONARY: Chest is clear to auscultation, no wheezing or crackles. ABDOMEN: Soft, nontender, nondistended, normoactive bowel sounds. No palpable organomegaly. Pigtail catheter noted with insertion point at the left flank t here is a milky brown drainage noted in the drainage bag. MUSCULOSKELETAL: No joint swelling or deformity. EXTREMITIES: No cyanosis, clubbing, or pedal edema. NEUROLOGICAL: Gross neurological examination did not reveal any focal deficits. SKIN: No rashes. Assessment: Acute sigmoid diverticulitis as well as microperforation, on antibiotics 4.3 cm mass in the upper pole on the right kidney with concerns of renal cell carcinoma, evaluated by urology recommending outpatient repeat imaging after abscess clears Persistent abscess within the pelvic region of the descending colon and sigmoid colon with an overall increase in size of the abscess measuring 6.0 x 7.67 and was previously 4.9 x 4.9 cm Leukocytosis likely secondary to above, resolved Tiny droplets of free intraperitoneal air noted on initial CT scan Incidental note of 6.5 mm pulmonary nodule, will need outpatient follow-up History of hypertension Morbid obesity with a BMI of 40.0 GI prophylaxis DVT prophylaxis Full code Plan: Recommend to continue with current medications and management per general surgery services. Infectious disease following and recommending IV Zosyn for 2 weeks of outpatient antibiotic therapy Repeat CT abdomen as mentioned above patient did receive a midline for outpatient IV antibiotics with concerns of increased size of abscess Drainage tube in place. follow up with general surgery. Encouraged increase activity as tolerated Recommend no heavy lifting or bending forward for the next week or so until follow-up with surgery outpatient Patient is medically stable once cleared by general surgery and infectious disease for discharge Thank you kindly for this consultation. Medically patient is cleared for discharge if cleared by ID and general surgery. Repeat labs outpatient in 2 to 3 days. The impression and plan of care has been dictated by Gayle Muñoz, Nurse Practitioner as directed. Dr. Favio MD I have performed a history and physical examination and medical decision making of this patient, discussed the same with the dictator, and agree with the dictators assessment and plan as written, documented as a scribe. Based on total visit time, I have performed more than 50% of this visit. Objective - Vital Signs Vital signs: Vital Signs Temp 98.9 F 06/13/23 06:47 Pulse 80 06/13/23 08:00 Resp 18 06/13/23 08:00 BP 144/67 06/13/23 06:47 Pulse Ox 97 06/13/23 06:47 FiO2 Intake & Output 06/12/23 06/13/23 06/13/23 18:59 06:59 18:59 Output Total 100 2235 Balance -100 -2235 Weight 145.15 kg Output: Drainage 100 75 Left Buttock 100 75 Urine 2160 Other: Voiding Method Toilet Toilet # Voids 2 5 - Labs CBC & Chem 7: 06/13/23 05:27 06/11/23 06:20 Labs: Abnormal Lab Results - Last 24 Hours (Table) 06/13/23 Range/Units 05:27 RBC 4.13 L (4.30-5.90) m/uL Hgb 12.0 L (13.0-17.5) gm/dL Hct 35.5 L (39.0-53.0) % Neutrophils # 7.9 H (1.3-7.7) k/uL Microbiology - Last 24 Hours (Table) 06/12/23 14:06 Gram Stain - Preliminary Aspirate Body Fluid Culture - Preliminary 06/07/23 08:25 Blood Culture - Final Blood 06/07/23 08:10 Blood Culture - Final Blood Assessment and Plan Time with Patient: Less than 30
--- NOTE | 2023-06-13 14:56 | P.PN ---
Subjective Progress Note Date: 06/13/23 Principal diagnosis: Diverticular abscess s/p percutaneous drainage of pelvic diverticular abscess Objective - Vital Signs Vital signs: Vital Signs Temp 98.9 F 06/13/23 06:47 Pulse 80 06/13/23 08:00 Resp 18 06/13/23 08:00 BP 144/67 06/13/23 06:47 Pulse Ox 97 06/13/23 06:47 FiO2 Intake & Output 06/12/23 06/13/23 06/13/23 18:59 06:59 18:59 Output Total 100 2235 Balance -100 -2235 Weight 145.15 kg Output: Drainage 100 75 Left Buttock 100 75 Urine 2160 Other: Voiding Method Toilet Toilet # Voids 2 5 - Gastrointestinal General gastrointestinal: Absent: tenderness (Puruent fluid in catheter drainage bag) - Labs CBC & Chem 7: 06/13/23 05:27 06/11/23 06:20 Labs: Abnormal Lab Results - Last 24 Hours (Table) 06/13/23 Range/Units 05:27 RBC 4.13 L (4.30-5.90) m/uL Hgb 12.0 L (13.0-17.5) gm/dL Hct 35.5 L (39.0-53.0) % Neutrophils # 7.9 H (1.3-7.7) k/uL Microbiology - Last 24 Hours (Table) 06/12/23 14:06 Gram Stain - Preliminary Aspirate Body Fluid Culture - Preliminary 06/07/23 08:25 Blood Culture - Final Blood 06/07/23 08:10 Blood Culture - Final Blood Assessment and Plan Assessment: Purulent fluid in catheter drainage bag. No abdominal tenderness
--- NOTE | 2023-06-13 15:00 | P.DS ---
Providers Date of admission: 06/07/23 08:10 Expected date of discharge: 06/13/23 Attending physician: Moiz Martin Consults: 06/07/23 11:21 Consult Physician Routine Consulting Provider: Lukas Ledezma Consult Reason/Comments: For diverticulitis Do you want consulting provider notified?: Yes Consult Physician Routine Consulting Provider: Sadiq Davis Consult Reason/Comments: Comanagement Do you want consulting provider notified?: Yes 06/11/23 15:28 Consult Physician Routine Consulting Provider: Valentin Steele Consult Reason/Comments: right kidney mass Do you want consulting provider notified?: Yes Primary care physician: Reed Lambert [facility] Course: The patient was treated with IV antibiotics and when abscess didn't resolve, he underwent percutaneous drainage of the abscess. Assessment: Improved after percutaneous drainage of abscess. Procedures: Percutaneous abscess drainage Patient Condition at Discharge: Good Plan - Discharge Summary Discharge Rx Participant: No New Discharge Prescriptions: New Lansoprazole 30 mg PO DAILY #14 tab Continue tadalafiL [Cialis] 20 mg PO Q72H PRN PRN Reason: PRIOR TO SEXUAL ACTIVITY lisinopriL 30 mg PO DAILY Discharge Medication List lisinopriL 30 mg PO DAILY 06/07/23 [History] tadalafiL [Cialis] 20 mg PO Q72H PRN 06/07/23 [History] Lansoprazole 30 mg PO DAILY #14 tab 06/13/23 [Rx] Follow up Appointment(s)/Referral(s): [facility] [NON-STAFF] - 1-2 Days ([facility] will call you to schedule your in home nursing visits for outpatient IV antibiotic teaching. Your first visit will be on Thursday. Alysia from [facility] will call you with the time. ) Reed Lambert DO [Primary Care Provider] - 1-2 days [facility] [NON-STAFF] - As Needed ([facility] is the IV antibiotic company. The supplies will be delivered to the hospital on 06/12/23. ) Lukas Ledezma MD [STAFF PHYSICIAN] - 06/24/23 2:30 pm Arnulfo Richards MD [STAFF PHYSICIAN] - 2 Weeks Moiz Martin MD [STAFF PHYSICIAN] - 06/16/23 Ambulatory/Diagnostic Orders: Basic Metabolic Panel [LAB.AMB] Location: None Selected Complete Blood Count w/diff [LAB.AMB] Time Frame: 3 Days, Location: None S elected Discharge Disposition: HOME WITH HOME HEALTH SERVICES
== END 2023-06-13 15:37 | disposition home health service (06) | DRG 871 ==
LOC: EC 06:16 → 4SSUR 08:10
PROVIDERS: ADMIT Surgery; ATTEND Surgery
PROC: 05HF33Z Insertion of Infusion Device into Left Cephalic Vein, Percutaneous Approach (ICD-10-PCS; principal; 2023-06-12 09:00)
DX: A41.9 Sepsis, unspecified organism (principal); K65.1 Peritoneal abscess; K57.20 Diverticulitis of large intestine with perforation and abscess without bleeding; Z68.41 Body mass index [BMI] 40.0-44.9, adult; E87.1 Hypo-osmolality and hyponatremia; N28.89 Other specified disorders of kidney and ureter; Z79.899 Other long term (current) drug therapy; I10 Essential (primary) hypertension; E66.01 Morbid (severe) obesity due to excess calories; Z71.3 Dietary counseling and surveillance; R91.1 Solitary pulmonary nodule; Z28.21 Immunization not carried out because of patient refusal
CPT/HCPCS: 36410; 36415; 71045; 74177; 75989; 76937; 80048; 80053; 81003; 83605; 83690; 85025; 85610; 87040; 87070; 87075; 87205; 96361; 96374; 96375; 99285

== ENCOUNTER → 2023-06-23 | Outpatient (CLI) | payer OTHER ==
[2023-06-23 09:53] LABS: African American GFR (CKD) >90 (>60 ml/min/1.73 sqM); Blood Urea Nitrogen 10 mg/dL (9-20); Non-African American GFR(CKD) 83 (>60 ml/min/1.73 sqM)
--- NOTE | 2023-06-23 16:37 | CT ---
EXAMINATION TYPE: CT abdomen pelvis w con DATE OF EXAM: 06/23/2023 COMPARISON: 06/11/2023 INDICATION: abdominal abscess, drainage tube placed on 06/12/23 DLP: 2954.80 mGycm, Automated exposure control for dose reduction was used. CONTRAST: 100 mL of Isovue 300. Study performed with Oral Contrast TECHNIQUE: Axial images were obtained from above the diaphragm to the pubic rami in the axial plane a t 5 mm thick sections. Reconstructed images are reviewed on the computer in the coronal plane. FINDINGS: Limited CT sections are obtained the lung bases. The lung bases are clear. CT ABDOMEN: There is a 1.0 cm lymph node adjacent to the victor manuel of the diaphragm. Series 3 image 28. Liver: Normal Spleen: Normal Pancreas: Normal Adrenal glands: The adrenal glands are normal. Gallbladder: Normal Kidneys: There is a 4.4 cm slightly hypodense area within the upper pole lateral right kidney better visualized on delayed images. Complex cyst or mass may be present. Additional workup is recommended. No hydronephrosis is present. No cysts are present. Delayed images were obtained through the kidne ys. Aorta: Vascular calcification is within the aorta. Inferior vena cava: Normal. CT PELVIS: Multiple diverticuli within the sigmoid colon. The inflammatory change adjacent sigmoid colon has sig nificantly improved over the interval. Previous abscesses are not identified on the current examinati on. A drainage catheter is in the inferior sigmoid region. Residual fluid or abscess is not identifie d. There are loops of bowel which are incompletely distended or lack oral contrast limiting their ginny luation. Appendix: Normal as visualized. Urinary bladder: Normal. Genitourinary structures: Prostate appears normal Osseous structures: No suspicious lytic or sclerotic lesions. IMPRESSION: 1. No residual abscess identified. Drainage catheter lies just inferior to the sigmoid colon. No res idual fluid collections. However, inflammatory changes remain adjacent to the sigmoid colon with mult iple diverticuli. Resolving diverticulitis.
== END | disposition home or self-care (01) ==
LOC: RADCTMAIN 09:08
PROVIDERS: ATTEND Internal Medicine Infectious Disease
DX: L02.211 Cutaneous abscess of abdominal wall (principal); Z97.8 Presence of other specified devices
CPT/HCPCS: 82565; 84520; 74177; 36415; Q9967

== ENCOUNTER 2023-07-03 13:03 | Day surgery (SDC) | payer OTHER ==
[2023-07-03 14:34] VITALS: BP 121/69; PULSE 76; RESP 18; TEMP 98.3
== END 2023-07-03 14:00 | disposition home or self-care (01) ==
LOC: RADPROMAIN 13:03
PROVIDERS: ATTEND Radiology Body Imaging
DX: Z48.01 Encounter for change or removal of surgical wound dressing (principal)
CPT/HCPCS: 99213

== ENCOUNTER 2023-07-10 12:54 | Day surgery (SDC) | payer OTHER ==
[2023-07-10 13:45] VITALS: BP 170/90; PULSE 79; RESP 16; TEMP 98.1
== END 2023-07-10 13:35 | disposition home or self-care (01) ==
LOC: RADPROMAIN 12:54
PROVIDERS: ATTEND Radiology Body Imaging
DX: Z00.00 Encounter for general adult medical examination without abnormal findings (principal)
CPT/HCPCS: 99213